=== PATIENT | male | born 1970 | race Caucasian/White ===

== ENCOUNTER 2020-11-13 17:49 | Observation (INO) ==
[~2020-11-13 17:49] MED LIST: EPINEPHrine INJ 1 MG/ML AMP ONE; FAMOTIDINE 20MG/5ML IV PUSH IV ONE; RACEPINEPHRINE 2.25% NEBU SOLN 0.5 ML VIAL ONE; RAPID SEQUENCE INDUCTION BAG ONE
--- NOTE | 2020-11-13 18:06 | Emergency Department Note ---
History of Present Illness General Chief complaint: Allergic Reaction Stated complaint: ALLERGIC REACTION History of Present Illness Provider complaint: allergic reaction Onset (ago): hour(s) 1 Exposure: insect bite Symptoms: lip swelling, difficulty swallowing and hoarseness Severity: severe Treatment prior to arrival: benadryl (50 mg PO & 50 mg IVP), epinephrine (2 doses epi 0.3mg IM), oxygen, steroids (solumedrol 125) and IV fluids Home Medications Medication Instructions Recorded Confirmed Type tadalafil 10 mg tablet (Cialis) 10 mg PO DAILY PRN #20 tab 03/09/19 11/13/20 Rx losartan 50 mg tablet 50 mg PO DAILY #90 tab 01/23/20 11/13/20 Rx Allergies Allergy/AdvReac Type Severity Reaction Status Date / Time amlodipine Allergy Severe MOOD CHANGE Verified 11/13/20 18:12 cephalexin Allergy Severe HIVES Verified 11/13/20 18:12 Past Med/Surg History Medical History HTN (hypertension) Left ankle sprain Surgical History S/P carpal tunnel release S/P tonsillectomy and adenoidectomy Family History Father Myocardial infarction Aunt Colorectal cancer Family/Other Family history of ischemic heart disease before age 50 Denies family history of Ovarian cancer Prostate cancer Breast cancer Social History Smoking Status: Current every day smoker Tobacco Type: Cigarettes Hx Alcohol Use: Yes (3 to 4) Alcohol type: beer Hx Substance Use: No Preferred Language: Portuguese Communication Ability: Effective Visual Impairment: No Limitations Hearing Ability: Normal marital status: Current Living Situation: Spouse Feels Safe at Home: Yes Seatbelt Use: always Review of Systems A total of 10 systems reviewed and were otherwise negative Physical Exam Vital Signs Vital Signs - 24 hr 11/13/20 17:50 11/13/20 17:53 11/13/20 17:55 Temperature 36.5 C Temperature Source Oral Pulse Rate 94 H 82 Pulse Rate [Apical] Pulse Rate from SpO2 Sensor 84 Pulse Rhythm Regular Pulse Strength Normal Respiratory Rate 19 13 Respiratory Effort / Characteristics Non-Labored Spontaneous Respiratory Depth Normal Respiratory Pattern Regular Blood Pressure 109/74 129/80 Blood Pressure [Right Arm] Blood Pressure Mean 85 96 Blood Pressure Mean [Right Arm] Blood Pressure Position Lying Pulse Oximetry 100 100 100 Oxygen Delivery Method Nasal Cannula Nasal Cannula Nasal Cannula Oxygen Flow Rate 6 6 4 Sepsis Recent Fever Within 48 Hours No Sepsis New/Unexplained Change in Mental Status N/A Sepsis Action Taken by Nursing No Action Required Oxygen Flow Rate - Titration 4 Pulse Oximetry Post Tiitration 99 11/13/20 18:02 11/13/20 18:15 11/13/20 18:30 Temperature Temperature Source Pulse Rate 94 H 124 H 92 H Pulse Rate [Apical] Pulse Rate from SpO2 Sensor 88 91 H 89 Pulse Rhythm Pulse Strength Respiratory Rate 18 20 Respiratory Effort / Characteristics Respiratory Depth Respiratory Pattern Blood Pressure 142/82 H Blood Pressure [Right Arm] Blood Pressure Mean 102 Blood Pressure Mean [Right Arm] Blood Pressure Position Pulse Oximetry 98 100 100 Oxygen Delivery Method Nasal Cannula Nasal Cannula Nasal Cannula Oxygen Flow Rate 4 4 2 Sepsis Recent Fever Within 48 Hours Sepsis New/Unexplained Change in Mental Status Sepsis Action Taken by Nursing Oxygen Flow Rate - Titration Pulse Oximetry Post Tiitration 11/13/20 19:27 Temperature Temperature Source Pulse Rate Pulse Rate [Apical] 80 Pulse Rate from SpO2 Sensor Pulse Rhythm Pulse Strength Respiratory Rate 20 Respiratory Effort / Characteristics Respiratory Depth Respiratory Pattern Blood Pressure Blood Pressure [Right Arm] 142/79 H Blood Pressure Mean Blood Pressure Mean [Right Arm] 100 Blood Pressure Position Pulse Oximetry 99 Oxygen Delivery Method Room Air Oxygen Flow Rate Sepsis Recent Fever Within 48 Hours Sepsis New/Unexplained Change in Mental Status Sepsis Action Taken by Nursing Oxygen Flow Rate - Titration Pulse Oximetry Post Tiitration Physical Exam GENERAL: Diaphoretic tremulous. Patient able to speak in full sentences. patient on 6L O2 via NC HENT: Exam performed. - Head: Normocephalic and atraumatic. - Right Ear: External ear normal. No mastoid tenderness. - Left Ear: External ear normal. No mastoid tenderness. - Mouth/Throat: The oropharynx is clear and moist. No trismus in the jaw. No tongue or uvular swelling. No lip swelling. EYES: Conjunctivae and EOM are normal. Pupils are equal, round, and reactive to light. Right eye exhibits no discharge. Left eye exhibits no discharge. No scleral icterus. NECK: Normal range of motion. Neck supple. No JVD present. CV: tachycardic rate, regular rhythm, normal heart sounds and intact distal pulses. There is no peripheral edema. Palpable radial pulses bue. PULM/CHEST: Bilateral expiratory wheezes. - Chest Wall: He exhibits no tenderness. ABD: The abdomen is soft. MUSC/SKEL: Normal range of motion. There is no peripheral edema, tenderness or deformity. NEURO: He is alert and oriented to person, place, and time. He has normal strength. No cranial nerve deficit or sensory deficit. Course Course 1749: The patient was evaluated in room A1. A complete history and physical exam was performed Cardiac monitoring: An order was placed for continuous cardiac monitoring. The monitor shows a rate of 100 with sinus rhythm 50-year-old male presented emergency department via EMS for allergic reaction. Patient states he was feeling fine today and he was outside and then he got stung by approximately 20 bees in his leg. He states he immediately started feeling short of breath, like he could not swallow, like his lips are swelling, and became sweaty. He states he took Benadryl 50 mg via mouth but it did not help. EMS was called. Patient was 86% on room air per EMS. They stated he was diaphoretic had some lip swelling and was having difficulty breathing. EMS gave the patient epi 0.3 mg IM start IV fluids and give the patient Solu-Medrol 125 mg. Benadryl 50 mg IV push was given by EMS. EMS stated that the patient became more hypotensive and so they gave him another epinephrine 0.3 mg. They stated when they pulled into the driveway the patient's blood pressure started becoming better and his lip swelling started becoming better. Patient states he only feels mild lip swelling now and states he can swallow much better. Fusun-hw-antl ABG done here shows pH of 7.28 PCO2 38.3 PaO2 124 and bicarb 18.1. Oxygen saturation 90%. Patient does state he smokes every day and that is why he is wheezing. He states he feels much better each breathing right now. We will continue to monitor the patient at this time and check labs and EKG. 184: Vital signs stable on supplemental oxygen via nasal cannula. Patient continues to be able to talk in full sentences and maintain his airway. Patient states he feels much better. Given the patient's need for 2 dose of epinephrine we will observe the patient overnight for anaphylaxis. Discussed case with Dr. Lion salzaar [facility] hospitalist who agrees to evaluate the patient. Administered Medications Discontinued Medications Epinephrine (Racepinephrine 2.25% Nebu Soln 0.5 Ml Vial) Confirm Administered Dose 0.5 ml .ROUTE .STK-MED ONE Stop: 11/13/20 17:47 Last Admin: 11/13/20 18:38 Dose: Not Given Documented by: [id number] Epinephrine HCl (Epinephrine Inj 1 Mg/Ml Amp) Confirm Administered Dose 1 mg .ROUTE .STK-MED ONE Stop: 11/13/20 17:39 Last Admin: 11/13/20 18:37 Dose: Not Given Documented by: [id number] Famotidine (Famotidine 20mg/5ml Iv Push) Confirm Administered Dose 20 mg IV .STK-MED ONE Stop: 11/13/20 17:39 Last Admin: 11/13/20 17:51 Dose: 20 mg Documented by: [id number] Miscellaneous (Rapid Sequence Induction Bag) Confirm Administered Dose 1 ea .ROUTE .STK-MED ONE Stop: 11/13/20 17:48 Last Admin: 11/13/20 18:38 Dose: Not Given Documented by: [id number] Medical Decision Making Laboratory Data : 11/13/20 18:04 11/13/20 18:04 Lab Results 11/13/20 11/13/20 11/13/20 Range/Units 18:04 18:04 18:45 WBC 10.35 (4.8-10.8) K/uL RBC 5.09 (4.7-6.1) M/uL Hgb 16.9 (14.0-18.0) g/dL Hct 48.6 (42-52) % MCV 95.5 (80-100) fL MCH 33.2 (25-34) pg MCHC 34.8 (32-36) g/dL RDW Std Deviation 45.5 (36.4-46.3) fL RDW Coeff of Kush 13.2 (11.5-14.5) % Plt Count 253 (130-400) K/uL MPV 9.9 (7.4-10.4) fL Immature Gran % (Auto) 0.4 % Neut % (Auto) 64.7 % Lymph % (Auto) 28.6 % [place] % (Auto) 5.3 % Eos % (Auto) 0.8 % Baso % (Auto) 0.2 % Neut # (Auto) 6.70 H (1.4-6.5) K/uL Lymph # (Auto) 2.96 (1.2-3.4) K/uL [place] # (Auto) 0.55 (0.11-0.59) K/uL Eos # (Auto) 0.08 (0-0.5) K/uL Baso # (Auto) 0.02 (0-0.2) K/uL Immature Gran # (Auto) 0.04 H (0.00-0.02) K/uL Sodium 135 L (136-145) mmol/L Potassium (3.5-5.1) mmol/L Chloride 105 (98-107) mmol/L Carbon Dioxide 20 L (21-32) mmol/L Anion Gap 11.0 (3-11) BUN 12 (7-18) mg/dl Creatinine 1.30 (0.6-1.4) mg/dl Est Cr Clr Drug Dosing 90.0 ml/min Est GFR ( Amer) 73.7 ml/min Est GFR (Non-Af Amer) 63.6 ml/min BUN/Creatinine Ratio 8.9 L (10-20) Glucose 104 H (70-99) mg/dl Calcium 9.0 (8.5-10.1) mg/dl COVID-19 Eval Order Covid19 at [facility] Narrative [facility] Narrative: 1750: The patient was evaluated in room A1. A complete history and physical exam was performed Cardiac monitoring: An order was placed for continuous cardiac monitoring. The monitor shows a rate of 100 with sinus rhythm 50-year-old male presented emergency department via EMS for allergic reaction. Patient states he was feeling fine today and he was outside and then he got stung by approximately 20 bees in his leg. He states he immediately started feeling short of breath, like he could not swallow, like his lips are swelling, and became sweaty. He states he took Benadryl 50 mg via mouth but it did not help. EMS was called. Patient was 86% on room air per EMS. They stated he was diaphoretic had some lip swelling and was having difficulty breathing. EMS gave the patient epi 0.3 mg IM start IV fluids and give the patient Solu-Medrol 125 mg. Benadryl 50 mg IV push was given by EMS. EMS stated that the patient became more hypotensive and so they gave him another epinephrine 0.3 mg. They stated when they pulled into the driveway the patient's blood pressure started becoming better and his lip swelling started becoming better. Patient states he only feels mild lip swelling now and states he can swallow much better. Point -of-care ABG done here shows pH of 7.28 PCO2 38.3 PaO2 124 and bicarb 18.1. Oxygen saturation 90%. Patient does state he smokes every day and that is why he is wheezing. He states he feels much better each breathing right now. We will continue to monitor the patient at this time and check labs and EKG. 1845: Vital signs stable on supplemental oxygen via nasal cannula. Patient continues to be able to talk in full sentences and maintain his airway. Patient states he feels much better. Given the patient's need for 2 dose of epinephrine we will observe the patient overnight for anaphylaxis. Discussed case with Dr. Lion salazar any hospitalist who agrees to evaluate the patient. Impression & Plan Anaphylaxis Discharge Plan Visit Data Chief Complaint: Allergic Reaction Stated Complaint: ALLERGIC REACTION ED Provider: Ulysses Meyer Discharge Problem: Anaphylaxis Patient Disposition: Admitted As Inpatient Forms Stand Alone Forms: [facility] Prescriptions Prescriptions: No Action losartan 50 mg tablet 50 mg PO DAILY Qty: 90 RF: 3 tadalafil [Cialis] 10 mg tablet 10 mg PO DAILY PRN (Reason: sexual activity) Qty: 20 RF: 3 Referrals Referrals: Harsha Patterson MD [Primary Care Provider] -
[2020-11-13 18:13] LABS: Basophils # (auto) 0.02 K/uL (0-0.2); Basophils % (auto) 0.2 %; Eosinophils # (auto) 0.08 K/uL (0-0.5); Eosinophils % (auto) 0.8 %; Hematocrit (blood only) 48.6 % (42-52); Hemoglobin 16.9 g/dL (14.0-18.0); Immature Granulocytes # (auto) 0.04 K/uL (0.00-0.02); Immature Granulocytes % (auto) 0.4 %; Lymphocytes # (auto) 2.96 K/uL (1.2-3.4); Lymphocytes % (auto) 28.6 %; Mean Corpuscular Hemoglobin 33.2 pg (25-34); Mean Corpuscular Hgb Conc 34.8 g/dL (32-36); Mean Corpuscular Volume 95.5 fL (80-100); Mean Platelet Volume 9.9 fL (7.4-10.4); Monocytes # (auto) 0.55 K/uL (0.11-0.59); Monocytes % (auto) 5.3 %; Neutrophils % (auto) 64.7 %; Platelet Count 253 K/uL (130-400); RDW Coefficient of Variation 13.2 % (11.5-14.5); RDW Standard Deviation 45.5 fL (36.4-46.3); Red Blood Count 5.09 M/uL (4.7-6.1); White Blood Count 10.35 K/uL (4.8-10.8)
[2020-11-13 18:37] LABS: BUN Creatinine Ratio 8.9 (10-20); Est GFR (African American) 73.7 ml/min; Est GFR (Non-African American) 63.6 ml/min
--- NOTE | 2020-11-13 19:10 | XRay Report ---
XR chest 1V portable CLINICAL HISTORY: dyspnea COMPARISON STUDY: No previous studies for comparison. FINDINGS: No pneumothorax. No pleural effusion. No large infiltrates or consolidative lesions are seen. Minimal reticular prominence is seen within b ilateral basis. Cardiomediastinal silhouette is within normal limits in size. No significant pulmonary vascular congestion.. Aorta is tortuous. Osseous structures: unremarkable IMPRESSION: 1. No large infiltrates or consolidative lesions. ACT 112: Negative or not required by law. The above report was generated using voice recognition software. It may contain grammatical, syntax o r spelling errors. Electronically signed by: Candice Young DO 11/13/2020 7:09 PM
[2020-11-13] MEDS ORDERED: EPINEPHrine INJ 1 MG/ML AMP IM PRN (19:36)
--- NOTE | 2020-11-13 20:01 | History & Physical Report ---
Date of Service November 13, 2020 Assessment & Plan (1) Wasp sting-induced anaphylaxis: Plan: Harsha Irvin is a 50 yo male with a PMHx of hyperglycemia, HTN, tobacco abuse (3/4 ppd), and alcohol abuse (6-10 beers daily) who is admitted due to wasp sting-induced anaphylaxis. Anaphylaxis - Patient reports previous bee/wasp stings without allergic reaction - Today, patient stung > 20 times by wasps with subsequent allergic reaction/anaphylaxis requiring benadryl (50 mg PO & 50 mg IVP), epinephrine (2 doses epi 0.3mg IM), oxygen, steroids (solumedrol 125) and IV fluids en route with EMS - Now feeling much better - Will continue to monitor for recurrent symptoms including SOB, stridor, and lip swelling - Epinephrine 0.3mg IM ordered for prn dosing if symptoms of SOB, stridor, or lip swelling return. Hospitalist to be notified immediately if need for epinephrine. - Benadryl 25mg IV q8h - Prednisone 40mg po daily while admitted - Pepcid 20mg IV bid - Wean supplemental oxygen; maintain oxygen saturations > 92% - NPO but allow chips and sips Alcohol Abuse - Reports drinking 6-10 beers daily; last had 2 beers during the yard work today - Denies hx of alcohol withdrawal - Will initiate AWSS at risk protocol during admission. Please note that patient is currently slightly tremulous secondary to the epinephrine. - Do NOT suspect a component of alcohol withdrawal at this time. 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 - May provide nicotine replacement if needed during admission; not indicated at this time Hypertension - Continue home losartan FENGI: NPO -- okay for chips and sips Code status: Full code DVT ppx: Deferred at this time; recommend frequent ambulation Dispo: admit to [facility] (2) HTN (hypertension): (3) Alcohol abuse: (4) Tobacco user: History of Present Illness Primary Care Provider: Harsha Patterson MD Harsha Irvin is a 50 yo male with a PMHx of hyperglycemia, HTN, tobacco abuse (3/4 ppd), and alcohol abuse (6-10 beers daily), who presented to the [facility] ED via EMS due to anaphylaxis. Patient was at a friend's house doing yard work outside/using the weedwhacker when he stepped on a wasp's nest. Patient was stung about 20 times, primarily on his right leg. Reports previous bee/wasp stings without allergic reaction/symptoms. About 3-4 minutes after the wasp stings, patient had acute vision changes described as "vision going white" and feeling "like a spotlight was being shined into my face." He went to his vehicle to lay down/rest for several minutes. Patient felt that his symptoms were improving, however upon sitting/standing up again, his vision again "became white" and he had an acute onset of lip swelling and sweating. Patient's friend was witnessing the episode and reported that patient had labored breathing; however, patient denies any SOB or wheezing. EMS was called. Per ED documentation, prior to arrival to the ED, patient received benadryl (50 mg PO & 50 mg IVP), epinephrine (2 doses epi 0.3mg IM), oxygen, steroids (solumedrol 125) and IV fluids. Patient reports "feeling shaky" after the epinephrine but otherwise states that his symptoms have resolved. At this time, he reports "feeling much better." Patient denies CP, SOB, wheezing, throat pain/swelling, lip swelling, abd pain, nausea, vomiting, MANNING, lightheadedness, dizziness, vision changes, or leg pain. In the ED, [id number] ABG done showed pH of 7.28 PCO2 38.3 PaO2 124 and bicarb 18.1. Oxygen saturation 90% improved to 100% with NC (6L weaned to room air, currently satting at 99%). A CXR showed no acute process. Labs including CBC and BMP without significant abnormalities. Patient admitted for observation due to anaphylaxis s/p 2 rounds of epinephrine. Allergies Allergy/AdvReac Type Severity Reaction Status Date / Time amlodipine Allergy Severe MOOD CHANGE Verified 11/13/20 18:12 cephalexin Allergy Severe HIVES Verified 11/13/20 18:12 venom-wasp Allergy Severe Anaphylaxis Verified 11/13/20 20:12 Home Medications Medication Instructions Recorded Confirmed Type tadalafil 10 mg tablet (Cialis) 10 mg PO DAILY PRN #20 tab 03/09/19 11/13/20 Rx losartan 50 mg tablet 50 mg PO DAILY #90 tab 01/23/20 11/13/20 Rx Past Med/Surg History Medical History (Updated 11/13/20 @ 19:53 by Jaycee Saenz DO) Alcohol abuse HTN (hypertension) Left ankle sprain Tobacco user Wasp sting-induced anaphylaxis Surgical History S/P carpal tunnel release S/P tonsillectomy and adenoidectomy Family History Father Myocardial infarction Aunt Colorectal cancer Family/Other Family history of ischemic heart disease before age 50 Denies family history of Ovarian cancer Prostate cancer Breast cancer Social History Smoking Status: Current every day smoker Tobacco Type: Cigarettes Hx Alcohol Use: Yes (3 to 4) Alcohol type: beer Hx Substance Use: No Preferred Language: Nepalese Communication Ability: Effective Visual Impairment: No Limitations Hearing Ability: Normal marital status: Current Living Situation: Spouse Feels Safe at Home: Yes Seatbelt Use: always Review of Systems Review of Systems: See HPI Physical Exam Physical Exam: GENERAL: No acute distress. Well developed and well nourished. Vital signs reviewed as above. A/O x3. EYES: PERRLA. EOMI. Anicteric sclerae. HENT: Moist mucous membranes. No pharyngeal erythema or exudates. No tongue or uvular swelling. No lip swelling. No cervical lymphadenopathy. RESPIRATORY: Clear to auscultation bilaterally. Able to speak in full sentences without increased work of breathing. Mild inspiratory and expiratory wheezing bilateral upper lobes. No rales or rhonchi. CARDIOVASCULAR: Regular rate and rhythm. No murmurs. 2+ b/l pedal pulses. No peripheral edema. ABDOMEN: Soft, non-tender and non-distended. No palpable masses. Normal bowel sounds. EXTREMITIES: No edema. Non-tender. SKIN: Warm, dry. Multiple small erythematous raised lesions on right and left lower legs consistent with stings. NEUROLOGIC: No focal neurological deficits. CN II-XII grossly intact. Able to speak in full sentences. PSYCHIATRIC: Cooperative. Appropriate mood and affect. Results & Data Results & Data ([facility]) Vital Signs (Past 12 Hours) Vital Signs Temp Pulse Pulse Resp BP BP Pulse Ox 11/13/20 19:27 80 20 142/79 H 99 11/13/20 18:30 92 H 20 142/82 H 100 11/13/20 18:15 124 H 18 100 11/13/20 18:02 94 H 98 11/13/20 17:55 82 13 129/80 100 11/13/20 17:53 100 11/13/20 17:50 36.5 C 94 H 19 109/74 100 Laboratory Results 11/13/20 11/13/20 11/13/20 Range/Units 18:45 18:45 18:04 WBC (4.8-10.8) K/uL RBC (4.7-6.1) M/uL Hgb (14.0-18.0) g/dL Hct (42-52) % MCV (80-100) fL MCH (25-34) pg MCHC (32-36) g/dL RDW Std Deviation (36.4-46.3) fL RDW Coeff of Kush (11.5-14.5) % Plt Count (130-400) K/uL MPV (7.4-10.4) fL Immature Gran % (Auto) % Neut % (Auto) % Lymph % (Auto) % [place] % (Auto) % Eos % (Auto) % Baso % (Auto) % Neut # (Auto) (1.4-6.5) K/uL Lymph # (Auto) (1.2-3.4) K/uL [place] # (Auto) (0.11-0.59) K/uL Eos # (Auto) (0-0.5) K/uL Baso # (Auto) (0-0.2) K/uL Immature Gran # (Auto) (0.00-0.02) K/uL Sodium 135 L (136-145) mmol/L Potassium (3.5-5.1) mmol/L Chloride 105 (98-107) mmol/L Carbon Dioxide 20 L (21-32) mmol/L Anion Gap 11.0 (3-11) BUN 12 (7-18) mg/dl Creatinine 1.30 (0.6-1.4) mg/dl Est Cr Clr Drug Dosing 90.0 ml/min Est GFR ( Amer) 73.7 ml/min Est GFR (Non-Af Amer) 63.6 ml/min BUN/Creatinine Ratio 8.9 L (10-20) Glucose 104 H (70-99) mg/dl Calcium 9.0 (8.5-10.1) mg/dl COVID-19 Eval Order Covid19 at [facility] SARS-CoV-2 (PCR) Pending 11/13/20 Range/Units 18:04 WBC 10.35 (4.8-10.8) K/uL RBC 5.09 (4.7-6.1) M/uL Hgb 16.9 (14.0-18.0) g/dL Hct 48.6 (42-52) % MCV 95.5 (80-100) fL MCH 33.2 (25-34) pg MCHC 34.8 (32-36) g/dL RDW Std Deviation 45.5 (36.4-46.3) fL RDW Coeff of Kush 13.2 (11.5-14.5) % Plt Count 253 (130-400) K/uL MPV 9.9 (7.4-10.4) fL Immature Gran % (Auto) 0.4 % Neut % (Auto) 64.7 % Lymph % (Auto) 28.6 % [place] % (Auto) 5.3 % Eos % (Auto) 0.8 % Baso % (Auto) 0.2 % Neut # (Auto) 6.70 H (1.4-6.5) K/uL Lymph # (Auto) 2.96 (1.2-3.4) K/uL [place] # (Auto) 0.55 (0.11-0.59) K/uL Eos # (Auto) 0.08 (0-0.5) K/uL Baso # (Auto) 0.02 (0-0.2) K/uL Immature Gran # (Auto) 0.04 H (0.00-0.02) K/uL Sodium (136-145) mmol/L Potassium (3.5-5.1) mmol/L Chloride (98-107) mmol/L Carbon Dioxide (21-32) mmol/L Anion Gap (3-11) BUN (7-18) mg/dl Creatinine (0.6-1.4) mg/dl Est Cr Clr Drug Dosing ml/min Est GFR ( Amer) ml/min Est GFR (Non-Af Amer) ml/min BUN/Creatinine Ratio (10-20) Glucose (70-99) mg/dl Calcium (8.5-10.1) mg/dl COVID-19 Eval Order SARS-CoV-2 (PCR) Diagnostic Findings XR chest 1V portable CLINICAL HISTORY: dyspnea COMPARISON STUDY: No previous studies for comparison. FINDINGS: No pneumothorax. No pleural effusion. No large infiltrates or consolidative lesions are seen. Minimal reticular promin ence is seen within bilateral basis. Cardiomediastinal silhouette is within normal limits in size. No significant pulmonary vascular congestion.. Aorta is tortuous. Osseous structures: unremarkable IMPRESSION: 1. No large infiltrates or consolidative lesions. Supervising Physician Co-Signing Physician Notes Patient seen and examined, chart reviewed, case discussed with Dr. Saenz and I agree with her assessment and plan as above. In brief, patient is a 50yo male presenting after multiple wasp stings - resulting in SOB, lip swelling, difficulty swallowing and hoarseness. Patient given Benadryl and Epi x 2 doses (o.3 SC) en route to [facility] as well as Solumedrol and IVF Presently feels well. No SOB, stridor or lip swelling/tingling. No additional complaints at this time On exam he is afebrile, HD stable, NAD Skin -no rash HEENT- NC/AT, PERRL, EOMI, Neck supple Heart - +S21/S2, regular, no m/r/g Lungs - CTA Abd -+BS, soft, NT/ND Ext - No edema Labs and images reviewed Assessment/Plan - 50yo male presenting with anaphylactic reaction following multiple wasp stings at home. Received epi x 2 doses, steroids, IVF and benadryl with improvement. Symptoms resolved. -Observation -Epi as needed for SOB, wheeze, stridor or lip/throat swelling -Continue steroids - Prednisone 40mg daily -Continue Benadryl 25mg IV q 8 -Continue Pepcid 20mg IV BID -Most likely DC home tomorrow - patient should be supplied with an epi pen on discharge Resident Activity Tracking Resident Involvement: Resident Care Provided Care Provided: Adult Hospital Medicine
--- NOTE | 2020-11-13 20:55 | Billing Data ---
Date of Service November 13, 2020 Coding Level of Care Code 47851 Initial Inpt Care Lvl 2
[2020-11-13] MEDS ORDERED: LORazepam 1 MG/2 ML VIAL IV PRN (21:34)
[2020-11-13] MEDS ORDERED: ONDANSETRON INJ 2 MG/ML 2 ML VIAL IV PRN (21:34)
[2020-11-13] MEDS ORDERED: MAGNESIUM HYDROXIDE SUSP 30 ML UDC PO PRN (21:34)
[2020-11-13] MEDS ORDERED: POLYETHYLENE (MIRALAX) 17 GM PACK PO PRN (21:34)
[2020-11-13] MEDS ORDERED: ACETAMINOPHEN 325 MG TAB PO PRN (21:34)
[2020-11-13] MEDS ORDERED: ALUMINUM/MAGNESIUM SUSP 30 ML UDC PO PRN (21:34)
[2020-11-13] MEDS: FAMOTIDINE 20 MG in SYRINGE 3 ML IV SCH (22:39)
[2020-11-13] MEDS: diphenhydrAMINE 50 MG/ML VIAL IV SCH (22:39)
[2020-11-14] MEDS: diphenhydrAMINE 50 MG/ML VIAL IV SCH (05:40)
[2020-11-14 07:38] LABS: Hematocrit (blood only) 45.3 % (42-52); Immature Granulocytes # (auto) 0.02 K/uL (0.00-0.02); Immature Granulocytes % (auto) 0.2 %; Lymphocytes # (auto) 0.65 K/uL (1.2-3.4); Lymphocytes % (auto) 7.2 %; Mean Corpuscular Hemoglobin 33.2 pg (25-34); Mean Corpuscular Hgb Conc 35.3 g/dL (32-36); Mean Platelet Volume 9.4 fL (7.4-10.4); Monocytes # (auto) 0.46 K/uL (0.11-0.59); Monocytes % (auto) 5.1 %; Neutrophils # (auto) 7.89 K/uL (1.4-6.5); Neutrophils % (auto) 87.5 %; Platelet Count 227 K/uL (130-400); RDW Standard Deviation 45.2 fL (36.4-46.3); Red Blood Count 4.82 M/uL (4.7-6.1); White Blood Count 9.02 K/uL (4.8-10.8)
[2020-11-14 08:19] LABS: Calcium 8.6 mg/dl (8.5-10.1); Creatinine Clr Calc Pharmacy 133.6 ml/min; Est GFR (African American) 116.6 ml/min; Est GFR (Non-African American) 100.6 ml/min; Potassium 4.5 mmol/L (3.5-5.1)
--- NOTE | 2020-11-14 08:21 | Electrocardiogram Report ---
Test Reason : Blood Pressure : / mmHG Vent. Rate : 084 BPM Atrial Rate : 079 BPM P-R Int : 000 ms QRS Dur : 094 ms QT Int : 416 ms P-R-T Axes : 000 034 037 degrees QTc Int : 491 ms Poor data quality, interpretation may be adversely affected Probable Sinus rhythm Normal ECG No previous ECGs available Confirmed by Mg Wesley ([id number]) on 11/14/2020 8:20:37 AM Referred By: REFERRED SELF Confirmed By:Mg Wesley
[2020-11-14] MEDS: FAMOTIDINE 20 MG in SYRINGE 3 ML IV SCH (08:38)
[2020-11-14] MEDS ORDERED: predniSONE 20 MG TAB PO SCH (09:00)
[2020-11-14] MEDS ORDERED: LOSARTAN POTASSIUM 50 MG TAB PO SCH (09:00)
--- NOTE | 2020-11-14 09:56 | Discharge Summary ---
Date of Service November 14, 2020 Admission HPI Per Admitting Provider Harsha Irvin is a 50 yo male with a PMHx of hyperglycemia, HTN, tobacco abuse (3/4 ppd), and alcohol abuse (6-10 beers daily), who presented to the [facility] ED via EMS due to anaphylaxis. Patient was at a friend's house doing yard work outside/using the weedwhacker when he stepped on a wasp's nest. Patient was stung about 20 times, primarily on his right leg. Reports previous bee/wasp stings without allergic reaction/symptoms. About 3-4 minutes after the wasp stings, patient had acute vision changes described as "vision going white" and feeling "like a spotlight was being shined into my face." He went to his vehicle to lay down/rest for several minutes. Patient felt that his symptoms were improving, however upon sitting/standing up again, his vision again "became white" and he had an acute onset of lip swelling and sweating. Patient's friend was witnessing the episode and reported that patient had labored breathing; however, patient denies any SOB or wheezing. EMS was called. Per ED documentation, prior to arrival to the ED, patient received benadryl (50 mg PO & 50 mg IVP), epinephrine (2 doses epi 0.3mg IM), oxygen, steroids (solumedrol 125) and IV fluids. Patient reports "feeling shaky" after the epinephrine but otherwise states that his symptoms have resolved. At this time, he reports "feeling much better." Patient denies CP, SOB, wheezing, throat pain/swelling, lip swelling, abd pain, nausea, vomiting, MANNING, lightheadedness, dizziness, vision changes, or leg pain. In the ED, [id number] ABG done showed pH of 7.28 PCO2 38.3 PaO2 124 and bicarb 18.1. Oxygen saturation 90% improved to 100% with NC (6L weaned to room air, currently satting at 99%). A CXR showed no acute process. Labs including CBC and BMP without significant abnormalities. Patient admitted for observation due to anaphylaxis s/p 2 rounds of epinephrine. Admission Exam Per Admitting Provider GENERAL: No acute distress. Well developed and well nourished. Vital signs reviewed as above. A/O x3. EYES: PERRLA. EOMI. Anicteric sclerae. HENT: Moist mucous membranes. No pharyngeal erythema or exudates. No tongue or uvular swelling. No lip swelling. No cervical lymphadenopathy. RESPIRATORY: Clear to auscultation bilaterally. Able to speak in full sentences without increased work of breathing. Mild inspiratory and expiratory wheezing bilateral upper lobes. No rales or rhonchi. CARDIOVASCULAR: Regular rate and rhythm. No murmurs. 2+ b/l pedal pulses. No peripheral edema. ABDOMEN: Soft, non-tender and non-distended. No palpable masses. Normal bowel sounds. EXTREMITIES: No edema. Non-tender. SKIN: Warm, dry. Multiple small erythematous raised lesions on right and left lower legs consistent with stings. NEUROLOGIC: No focal neurological deficits. CN II-XII grossly intact. Able to speak in full sentences. PSYCHIATRIC: Cooperative. Appropriate mood and affect. Principal Diagnosis Anaphylaxis Discharge Exam General: A&Ox3. NAD. Cooperative. HEENT: Atraumatic, normocephalic. Pulm: CTAB A&P. -wheezes, -rales, -rhonchi. Symmetrical chest rise. No increase work of breathing. No respiratory distress. Cardiac: RRR, -mrg. Radial pulses intact and symmetrical. No LE edema. Abdominal: soft, non-tender, non-distended, BS x 4 Skin: warm, dry, several faint, small sting maxwell on posterior calves without surrounding erythema, no tenderness to palpation Discharge Data Allergies Allergy/AdvReac Type Severity Reaction Status Date / Time amlodipine Allergy Severe MOOD CHANGE Verified 11/13/20 18:12 cephalexin Allergy Severe HIVES Verified 11/13/20 18:12 venom-wasp Allergy Severe Anaphylaxis Verified 11/13/20 20:12 Consultations 11/13/20 18:44 ED Decision to Admit Stat Hospital Course (1) Wasp sting-induced anaphylaxis: Harsha Irvin is a 50 yo male with a PMHx of hyperglycemia, HTN, tobacco abuse (3/4 ppd), and alcohol abuse (6-10 beers daily) who was admitted to [facility] from 11/13 - 11/14 for wasp sting-induced anaphylaxis. Anaphylaxis Patient reports previous bee/wasp stings without allergic reaction; on 11/13 he was stung > 20 times by wasps with subsequent lip swelling, diaphoresis, and shortness of breath --> anaphylaxis - required benadryl (50 mg PO & 50 mg IVP), epinephrine (2 doses epi 0.3mg IM), oxygen, steroids (solumedrol 125) and IV fluids en route with EMS - also received supplemental O2 via NC but was weaned to RA after several hours - other symptoms completely resolved overnight - discharged with EpiPen rx sent to pharmacy - PCP f/u within 1 week; recommend discussion about Allergy/Immunology consult to discuss anaphylaxis and consideration for immunotherapy Alcohol use disorder - Without signs/symptoms of withdrawal in the hospital - Recommend f/u with PCP as stated above to address this Tobacco User - Counseled on tobacco cessation Hypertension - Continue home losartan (2) HTN (hypertension): (3) Alcohol abuse: (4) Tobacco user: Total Time Total Time Spent Total Time Spent (In Minutes): 20 minutes Discharge Plan Discharge Items Patient Disposition: Home - Self-Care Reason For Visit: ANAPHYLAXIS Discharge Diagnosis: Anaphylaxis Activity: Per Instructions section Non-emergency contact: Primary Care Provider Call non-emergency contact if: you have any medication questions and your symptoms worsen Follow-up/Referrals: Harsha Patterson MD [Primary Care Provider] - 11/19/20 2:15 pm (Pt is scheduled for the f/u appt on 11/19/20 at 2:15PM with Carmen Samuel PA-C for Dr. Patterson) Diet: Regular Addtl Attending Provider Instructions: Your were admitted to [facility] from 11/13 - 11/14 for lip swelling, trouble breathing and diaphoresis due to anaphylaxis (severe allergic reaction) after wasp stings. You were treated with several doses of Epinephrine as well as Benadryl and steroids, which resolved all of your symptoms. You were completely back to baseline without any symptoms as of 11/14 and tolerated breakfast well. You will be discharged on 11/14 in good, stable condition. Please sheepskin pickler a prescription for an EpiPen at your pharmacy - if you get stung by bees/wasps and begin to have some of the symptoms you had again, please administer this medication. We also recommend that you speak with your PCP about seeing an Wire Stitcher Operator to speak more about this hospitalization. Please follow up with your PCP within 1 week. You can continue to take your other home medications as scheduled. We hope you continue to feel well. Pending Studies at Discharge: No Stand-Alone Forms: My [facility] Medications and DC Order Prescriptions: New epinephrine [EpiPen 2-Kyrie] 0.3 mg/0.3 mL auto-injector 0.3 mg IM Q4H PRN (Reason: anaphylaxis) Qty: 1 RF: 1 Continued losartan 50 mg tablet 50 mg PO DAILY Qty: 90 RF: 3 tadalafil [Cialis] 10 mg tablet 10 mg PO DAILY PRN (Reason: sexual activity) Qty: 20 RF: 3 Discharge Orders: Discharge Order (Routine); Ordered 11/14/20 Ordered By: Colt Stuart/Other Patient Handouts: Anaphylactic Shock Dc, ED Anaphylaxis, ED Using an Injection Pen Admission Data Admit Date/Time: 11/13/20 19:36 Attending Provider: Josi Ballard Admit Provider: Jaycee Saenz Primary Care Provider: Harsha Patterson Other Providers: Mehnaz Seymour Other Interventions: Discharge Summary Assessment (RN) Last Done: 11/14/20 10:06 Supervising Physician Co-Signing Physician Notes Resident Physician Supervision Note: I independently interviewed and examined the patient and verified the herrera history and physical, reviewed labs and image studies and agree with resident Dr. Jeronimo findings and care plan. Resident Activity Tracking Resident Involvement: Resident Care Provided Care Provided: Adult Hospital Medicine
[2020-11-14 12:39] LABS: iSTAT Arterial Blood Gas pH 7.28 (7.35-7.45)
[2020-11-14 12:40] LABS: iSTAT Arterial Blood Gas HCO3 18 meg/L (19-24); iSTAT Arterial Blood Gas pCO2 38 mmHg (35-46); iSTAT Arterial Blood Gas pO2 124 mmHg (80-95); iSTAT Carbon Dioxide 19 mmol/L (24-31); iSTAT Sample Type Arterial
== END 2020-11-14 11:37 | disposition home or self-care (01) ==
LOC: ED 17:49 → 3N 17:49 → SUATTDRO 19:36 → 3N 21:15

== ENCOUNTER 2023-06-28 12:33 | Observation (INO) ==
--- NOTE | 2023-06-28 13:26 | Emergency Department Note ---
History of Present Illness General Chief complaint: Flu Like Symptoms Stated complaint: COUGH/FEVER/CHILLS/VOMITING/DIARRHEA Time Seen by Provider: 06/28/23 13:25 History of Present Illness Maximum Pain Intensity: 2 This is a 52-year-old male who presents to the emergency department via private vehicle with complaints of "cough, fever, chills, vomiting, diarrhea". Patient states this past Wednesday morning around 10:15 AM he began with fever, shaking, chills and could not get warm. Temperature 103.8. He notes that he felt unwell. Since then he has had vomiting, diarrhea, chills and fever. Vomiting has subsided. Now he notes diarrhea, fevers and chills. Wednesday when he was vomiting he felt a pop in his left knee and now has redness to the left leg that is also painful. Patient also notes that he normally consumes about 9 beers per day. He stopped drinking 7 PM Wednesday. He did this because he felt unwell. Then, the following morning around 10:15 AM was when he began with all the other symptoms. Home Medications Medication Instructions Recorded Confirmed Type epinephrine 0.3 mg/0.3 mL 0.3 mg (0.3 mL) IM Q4H PRN 09/01/22 06/28/23 Rx injection, auto-injector (EpiPen anaphylaxis #1 ea 2-Kyrie) tadalafil 10 mg tablet (Cialis) 10 mg PO DAILY PRN sexual activity 03/16/23 06/28/23 Rx #20 tabs losartan 50 mg tablet 50 mg PO QAM 06/28/23 06/28/23 History Allergies Allergy/AdvReac Type Severity Reaction Status Date / Time amlodipine Allergy Severe MOOD CHANGE Verified 06/28/23 15:20 cephalexin Allergy Severe HIVES Verified 06/28/23 15:20 venom-wasp Allergy Severe Anaphylaxis Verified 06/28/23 15:20 Past Med/Surg History Medical History Normal colonoscopy Encounter for screening for malignant neoplasm of rectum Encounter for screening for malignant neoplasm of colon Tobacco user Alcohol abuse Wasp sting-induced anaphylaxis HTN (hypertension) Left ankle sprain Surgical History S/P tonsillectomy and adenoidectomy S/P carpal tunnel release Family History Father Myocardial infarction Aunt Colorectal cancer Family/Other Family history of ischemic heart disease before age 50 Denies family history of Ovarian cancer Prostate cancer Breast cancer Social History (Updated 06/28/23 @ 17:27 by Zakia Santos MD) Smoking Status: Current every day smoker Tobacco Type: Cigarettes Second Hand Exposure: No; Do You Dip or Chew Tobacco: No; Hx Alcohol Use: Yes Alcohol type: beer Hx Substance Use: No Preferred Language: Yemeni Communication Ability: Effective Visual Impairment: No Limitations Hearing Ability: Normal Senior Property Manager Required: No Beliefs That Will Affect Care: None marital status: Current Living Situation: Alone Feels Safe at Home: Yes Seatbelt Use: always Assistive Devices: None Review of Systems A total of 10 systems reviewed and were otherwise negative Physical Exam Vital Signs Vital Signs - 24 hr 06/28/23 12:42 06/28/23 13:30 06/28/23 13:30 Temperature 37.5 C Temperature Source Temporal Artery Scan Pulse Rate 107 H 90 Pulse Rate from SpO2 Sensor 88 Respiratory Rate 18 24 Respiratory Effort / Characteristics Non-Labored Respiratory Depth Normal Respiratory Pattern Regular Blood Pressure 127/83 120/83 Blood Pressure Mean 97 97 Pulse Oximetry 96 95 Oxygen Delivery Method Room Air Room Air Sepsis Recent Fever Within 48 Hours No Sepsis New/Unexplained Change in Mental Status N/A Sepsis Action Taken by Nursing No Action Required 06/28/23 13:33 06/28/23 14:00 06/28/23 14:00 Temperature Temperature Source Pulse Rate 91 H 85 Pulse Rate from SpO2 Sensor 84 Respiratory Rate 24 Respiratory Effort / Characteristics Respiratory Depth Respiratory Pattern Blood Pressure 128/80 Blood Pressure Mean 96 Pulse Oximetry 96 Oxygen Delivery Method Room Air Sepsis Recent Fever Within 48 Hours Sepsis New/Unexplained Change in Mental Status Sepsis Action Taken by Nursing 06/28/23 15:32 06/28/23 16:00 06/28/23 16:30 Temperature Temperature Source Pulse Rate 79 Pulse Rate from SpO2 Sensor 79 Respiratory Rate 23 21 Respiratory Effort / Characteristics Respiratory Depth Respiratory Pattern Blood Pressure 131/75 135/74 133/80 Blood Pressure Mean 93 94 97 Pulse Oximetry 97 96 Oxygen Delivery Method Sepsis Recent Fever Within 48 Hours Sepsis New/Unexplained Change in Mental Status Sepsis Action Taken by Nursing 06/28/23 17:00 Temperature Temperature Source Pulse Rate Pulse Rate from SpO2 Sensor 80 Respiratory Rate 26 H Respiratory Effort / Characteristics Respiratory Depth Respiratory Pattern Blood Pressure 137/84 Blood Pressure Mean 101 Pulse Oximetry 96 Oxygen Delivery Method Sepsis Recent Fever Within 48 Hours Sepsis New/Unexplained Change in Mental Status Sepsis Action Taken by Nursing VITAL SIGNS - Vital signs and nursing notes were reviewed. GENERAL - 52-year-old male appearing his stated age who is in no acute distress. Communicates well with provider and answers questions appropriately. SKIN -Large area of erythema with petechial component to the left lower extremity involving mainly distal to the knee but also small patch to the left medial distal thigh. Proximal lymphangitic streaking noted in the left thigh region to the groin. HEAD - NC/AT. EYES - PERRL with EOMI bilaterally. Sclera anicteric. EARS - No deformities of external structures noted on gross examination bilaterally. NOSE - Midline and without cyanosis. No epistaxis or purulent drainage noted. MOUTH/OROPHARYNX - Without perioral cyanosis. Buccal mucosa pink and moist and without leukoplakia. Tongue midline with equal elevation of palate bilaterally. No tonsillar hypertrophy, erythema, or exudates noted. Good dentition noted. NECK - Neck with FROM. Supple to palpation. No lymphadenopathy noted. No nuchal rigidity. LUNGS - Chest wall symmetric without accessory muscle use, intercostals retractions, or central cyanosis. Normal vesicular breath sounds CTA B/L. No wheezes, rales, or rhonchi appreciated. CARDIAC - RRR with S1/S2. No murmur, rubs, or gallops appreciated. ABDOMEN - Abdominal contour normal without pulsations or visible masses. BS normoactive all four quadrants. No tenderness, palpable masses, hepatosplenomegaly, or ascites noted. EXTREMITIES - No clubbing or peripheral cyanosis. +5/5 strength noted in UE/LE bilaterally. Skin as above. Erythematous region to the left lower extremity is tender. NEUROLOGIC - Cranial nerves II through XII grossly intact. PSYCH - A&Ox3 and cooperates fully with examiner. Pt is very pleasant and interacts well with examiner. Course Administered Medications Lactated Ringer's (Lr) 1,000 mls @ 125 mls/hr IV .Q8H NHI Stop: 06/29/23 16:44 Last Admin: 06/28/23 18:50 Dose: 125 mls/hr Documented By: CPB Discontinued Medications Multivitamins 10 ml/ Thiamine HCl 100 mg/ Folic Acid 1 mg/Sodium Chloride 1,011.2 mls @ 500 mls/hr IV .Q2H2M ONE Stop: 06/28/23 15:45 Last Infusion: 06/28/23 16:10 Dose: Infused Documented By: Admin: 06/28/23 14:04 Dose: 500 mls/hr Documented By: SKYLA Piperacillin Sod/Tazobactam Sod (Zosyn) 4.5 gm in 100 mls @ 200 mls/hr IV NOW ONE Stop: 06/28/23 15:46 Last Infusion: 06/28/23 16:10 Dose: Infused Documented By: Admin: 06/28/23 15:44 Dose: 200 mls/hr Documented By: CPB Vancomycin HCl 2,000 mg/ (Sodium Chloride) 540 mls @ 200 mls/hr IV NOW ONE Stop: 06/28/23 17:58 Last Infusion: 06/28/23 18:39 Dose: Infused Documented By: Admin: 06/28/23 16:06 Dose: 200 mls/hr Documented By: CPB Magnesium Sulfate/Dextrose (Magnesium Sulfate / D5w) 1 gm in 100 mls @ 50 mls/hr IV ONE ONE Stop: 06/28/23 18:22 Last Infusion: 06/28/23 18:40 Dose: Infused Documented By: Admin: 06/28/23 16:39 Dose: 50 mls/hr Documented By: CPB Lactated Ringer's (Lr) 1,000 mls @ 999 mls/hr IV .Q1H1M ONE Stop: 06/28/23 17:38 Last Admin: 06/28/23 16:59 Dose: 999 mls/hr Documented By: CPB Potassium Phosphate (Pot Phosphate Monobasic W/ Sod Tab) 2 tab PO NOW STA Stop: 06/28/23 17:12 Last Admin: 06/28/23 17:24 Dose: 2 tab Documented By: SKYLA Medical Decision Making Laboratory Data 06/28/23 13:00 06/28/23 13:00 Lab Results 06/28/23 06/28/23 06/28/23 Range/Units 13:00 13:01 14:17 WBC 12.68 H (4.8-10.8) K/ul RBC 4.42 L (4.70-6.10) M/uL Hgb 14.2 (14.0-18.0) g/dl Hct 39.6 L (42.0-52.0) % MCV 89.6 (80.0-100.0) fL MCH 32.1 (25.0-34.0) pg MCHC 35.9 (32.0-36.0) g/dL RDW Std Deviation 41.1 (36.4-46.3) fL RDW Coeff of Kush 12.4 (11.5-14.5) % Plt Count 146 (130-400) K/uL MPV 9.6 (9.4-12.4) fL Immature Gran % (Auto) 2.6 % Neut % (Auto) 91.6 % Lymph % (Auto) 3.9 % Kershaw % (Auto) 1.7 % Eos % (Auto) 0.0 % Baso % (Auto) 0.2 % Neut # (Auto) 11.61 H (1.40-6.50) K/uL Lymph # (Auto) 0.50 L (1.20-3.40) K/uL Kershaw # (Auto) 0.21 (0.11-0.59) K/uL Eos # (Auto) 0.00 (0.00-0.50) K/uL Baso # (Auto) 0.03 (0.00-0.20) K/uL Immature Gran # (Auto) 0.33 H (0.01-0.20) K/uL Toxic Vacuolation 1+ Dohle Bodies 2+ PT 9.8 (9.0-12.0) Seconds INR 0.9 (0.9-1.1) APTT 32 H (21-31) Seconds PTT Ratio 1.1 Sodium 129 L (136-145) mmol/L Potassium 3.5 (3.5-5.1) mmol/L Chloride 100 (98-107) mmol/L Carbon Dioxide 20 L (21-32) mmol/L Anion Gap 9 (3-11) BUN 17 (6-23) mg/dl Creatinine 1.17 (0.6-1.4) mg/dl Est Cr Clr Drug Dosing 93.6 ml/min Est GFR ( Amer) 82.6 ml/min Est GFR (Non-Af Amer) 71.3 ml/min BUN/Creatinine Ratio 14.5 (10-20) Glucose 143 H (70-99(Fasting)) mg/dl Lactate 1.1 (0.4-2.0) mmol/L Calcium 9.1 (8.6-10.3) mg/dl Phosphorus 1.5 L* (2.5-4.9) mg/dl Magnesium 1.8 (1.7-2.4) mg/dl Total Bilirubin 0.8 (0.2-1.0) mg/dl AST 37 (13-39) U/L ALT 42 (7-52) U/L Alkaline Phosphatase 55 (34-104) U/L C-Reactive Protein 25.68 H (0-0.5) mg/dl Total Protein 7.2 (6.0-8.3) gm/dl Albumin 3.9 (3.4-5.0) gm/dl Globulin 3.3 (2.5-4.0) gm/dl Albumin/Globulin Ratio 1.2 (0.9-2) Procalcitonin 4.84 H (0-0.5) ng/ml Anaplasma Smear See Comment Babesia Smear See Comment Lyme Disease Screen Negative (Negative) SARS-CoV-2 (PCR) NEGATIVE (Negative) Influenza Type A (PCR) Negative (Neg) Influenza Type B (PCR) Negative (Neg) RSV (RT-PCR) Negative (Neg) Group A Strep (PCR) (NotDetected) 06/28/23 Range/Units 16:14 WBC (4.8-10.8) K/ul RBC (4.70-6.10) M/uL Hgb (14.0-18.0) g/dl Hct (42.0-52.0) % MCV (80.0-100.0) fL MCH (25.0-34.0) pg MCHC (32.0-36.0) g/dL RDW Std Deviation (36.4-46.3) fL RDW Coeff of Kush (11.5-14.5) % Plt Count (130-400) K/uL MPV (9.4-12.4) fL Immature Gran % (Auto) % Neut % (Auto) % Lymph % (Auto) % Kershaw % (Auto) % Eos % (Auto) % Baso % (Auto) % Neut # (Auto) (1.40-6.50) K/uL Lymph # (Auto) (1.20-3.40) K/uL Kershaw # (Auto) (0.11-0.59) K/uL Eos # (Auto) (0.00-0.50) K/uL Baso # (Auto) (0.00-0.20) K/uL Immature Gran # (Auto) (0.01-0.20) K/uL Toxic Vacuolation Dohle Bodies PT (9.0-12.0) Seconds INR (0.9-1.1) APTT (21-31) Seconds PTT Ratio Sodium (136-145) mmol/L Potassium (3.5-5.1) mmol/L Chloride (98-107) mmol/L Carbon Dioxide (21-32) mmol/L Anion Gap (3-11) BUN (6-23) mg/dl Creatinine (0.6-1.4) mg/dl Est Cr Clr Drug Dosing ml/min Est GFR ( Amer) ml/min Est GFR (Non-Af Amer) ml/min BUN/Creatinine Ratio (10-20) Glucose (70-99(Fasting)) mg/dl Lactate (0.4-2.0) mmol/L Calcium (8.6-10.3) mg/dl Phosphorus (2.5-4.9) mg/dl Magnesium (1.7-2.4) mg/dl Total Bilirubin (0.2-1.0) mg/dl AST (13-39) U/L ALT (7-52) U/L Alkaline Phosphatase (34-104) U/L C-Reactive Protein (0-0.5) mg/dl Total Protein (6.0-8.3) gm/dl Albumin (3.4-5.0) gm/dl Globulin (2.5-4.0) gm/dl Albumin/Globulin Ratio (0.9-2) Procalcitonin (0-0.5) ng/ml Anaplasma Smear Babesia Smear Lyme Disease Screen (Negative) SARS-CoV-2 (PCR) (Negative) Influenza Type A (PCR) (Neg) Influenza Type B (PCR) (Neg) RSV (RT-PCR) (Neg) Group A Strep (PCR) NOT DETECTED (NotDetected) Imaging Data Radiologist's Impression: Chest X-Ray 06/28/23 12:48 XR chest 1V portable HISTORY: flu like symptoms COMPARISON: Chest 11/13/2020. FINDINGS: The lungs are clear. Cardiac silhouette is normal in size. No pleural effusions. No pneumothorax. IMPRESSION: No acute process. ACT 112: Negative or not required by law. Electronically signed by: David Smith M.D. 06/28/2023 1:57 PM Venous Doppler Study 06/28/23 13:36 LEFT LOWER EXTREMITY VENOUS DOPPLER CLINICAL HISTORY: L leg pain, erythema, edema COMPARISON STUDY: Left lower extremity venous Doppler ultrasound October 13, 2012. TECHNIQUE: Sonography of the deep venous system of the left lower extremity was performed. Compression and augmentation were evaluated. FINDINGS: The left common femoral, superficial femoral and popliteal veins were compressible. Augmentation was normal. Flow was shown within the deep calf vessels. Incidental note was made of several benign-appearing left inguinal lymph nodes. IMPRESSION: No evidence of deep venous thrombus within the left lower extremity. ACT 112: Negative or not required by law. Electronically signed by: Ilir Doan M.D. 06/28/2023 3:44 PM Tibia/Fibula X-Ray 06/28/23 16:44 XR tibia fibula LT 2V CLINICAL HISTORY: Erythematous LLE COMPARISON: Left tibia and fibula radiographs April 02, 2014. FINDINGS: No acute fracture within the left tibia or fibula is noted. There are old posttraumatic/postoperative confines within the distal left tibia or fibula. No areas of bony erosion are identified. No soft tissue gas is identified by radiography. IMPRESSION: No acute osseous abnormality within the left tibia or fibula. ACT 112: Negative or not required by law. Electronically signed by: Ilir Doan M.D. 06/28/2023 5:[address] 06/28/23 16:53 CT femur LT wo con CLINICAL HISTORY: Left medial thigh cellulitis; potential abscess COMPARISON STUDY: Left lower extremity venous Doppler ultrasound performed earlier today. TECHNIQUE: Axial images of the left thigh and femur were obtained without IV contrast. Sagittal and coronal reconstructions were viewed. Automated exposure control was utilized for the study. A dose lowering technique was utilized adhering to the principles of ALARA. FINDINGS: Note is made of skin thickening and moderate subcutaneous stranding of the anterior medial left thigh. Stranding extends into the left pelvic sidewall. There is no soft tissue gas. No fluid collection is identified on this unenhanced examination. No areas of bony erosion are identified. Mildly enlarged left external iliac lymph node on image 51 of 513 measures 2.3 x 1.9 cm. A mildly enlarged left inguinal lymph node on image 127 measures 1.8 x 1.6 cm. No additional abnormalities are identified within visualized portions of the pelvis. There is also mild stranding within the left popliteal fossa. IMPRESSION: 1. Skin thickening with moderate subcutaneous stranding of the anterior medial left thigh extending into the left pelvic sidewall. This favors cellulitis. No fluid collection identified. No evidence for acute osteomyelitis. 2. Additional sites of subcutaneous stranding within the left lower extremity, including a left popliteal fossa. This stranding is nonspecific and could reflect edema or additional sites of cellulitis. No fluid collection identified. 3. Mildly enlarged left external iliac and inguinal lymph nodes which are likely reactive. A pelvis CT in 3 months to ensure resolution is recommended. ACT 112: Negative or not required by law. Electronically signed by: Ilir Doan M.D. 06/28/2023 5:41 PM MDM Narrative Patient was seen and evaluated as above in room A10. Review was performed of nursing notes and vital signs. After obtaining a thorough history and physical examination the above work up was performed. Vital signs overall stable. He is not hypotensive. Upon my initial assessment of the patient he had already received about 500 mL of normal saline. Patient sodium returned and was low at 129. I did inquire about alcohol use and the patient notes he drinks about 9 beers per day but has not had a drink since this past Wednesday evening around 7 PM. He then began with rest of the symptoms he presents with today the following morning. I did stop the normal saline bag at just over 500 mL and did order a banana bag to include the multivitamins as well as thiamine and folic acid. I will note that the hyponatremia appears to be acute as the patient did have blood work at the end of April of this year and sodium was normal at that time. Patient appears quite dehydrated and fits with his reported history of vomiting and diarrhea. Patient's presentation is concerning for that of infectious etiology. The left lower extremity erythema may represent cellulitis. Broad-spectrum antibiotics will be initiated. Patient notes he has tolerated penicillins before without issue. IV Zosyn and IV vancomycin ordered. It is felt that the benefit outweighs risk. Chest x-ray negative. Labs reveal leukocytosis 12.68. No significant anemia. There is toxic vacuolation and dohle bodies noted. There is hyponatremia 129. No evidence of kidney or liver failure emergently. Glucose 143. Phos 1.5. Procalcitonin 4.84. Lactate normal. Anaplasmosis and Babesia smear negative with send out test pending. Lyme screen negative. COVID, flu, RSV negative. Doppler study per my interpretation without evidence of DVT. The patient will require hospitalization for further evaluation and management of his infectious presentation. Blood cultures pending. Case discussed with the hospitalist service. Please refer to further documentation regarding his stay. GCS: 15 In the evaluation and treatment of this patient the following differential diagnoses were entertained: Bacteremia, sepsis, cellulitis, zoster, viral illness, among others Impression & Plan Cellulitis of left leg, Hypophosphatemia, Hyponatremia, Elevated procalcitonin Discharge Plan Visit Data Chief Complaint: Flu Like Symptoms Stated Complaint: COUGH/FEVER/CHILLS/VOMITING/DIARRHEA ED Provider: Larry Torres ED Midlevel Provider: Albert Brown Discharge Problem: Cellulitis of left leg, Hypophosphatemia, Hyponatremia, Elevated procalcitonin Patient Disposition: Admitted As Inpatient Condition: Good Forms Stand Alone Forms: [employer] Prescriptions Prescriptions: No Action tadalafil [Cialis] 10 mg tablet 10 mg PO DAILY PRN (Reason: sexual activity) Qty: 20 3RF Rx Instructions: take 30min before sexual activity do not use more than 1 dose per 24hrs epinephrine [EpiPen 2-Kyrie] 0.3 mg/0.3 mL auto-injector 0.3 mg IM Q4H PRN (Reason: anaphylaxis) Qty: 1 1RF losartan 50 mg tablet 50 mg PO QAM Referrals Referrals: Harsha Patterson MD [Primary Care Provider] -
[2023-06-28 13:37] LABS: Albumin Globulin Ratio 1.2 (0.9-2); Albumin Level 3.9 gm/dl (3.4-5.0); BUN Creatinine Ratio 14.5 (10-20); Bilirubin,Total 0.8 mg/dl (0.2-1.0); Calcium 9.1 mg/dl (8.6-10.3); Creatinine Clr Calc Pharmacy 93.6 ml/min; Est GFR (African American) 82.6 ml/min; Est GFR (Non-African American) 71.3 ml/min; Globulin 3.3 gm/dl (2.5-4.0); Potassium 3.5 mmol/L (3.5-5.1); Total Protein 7.2 gm/dl (6.0-8.3)
[2023-06-28 13:44] LABS: Hematocrit (blood only) 39.6 % (42.0-52.0); Hemoglobin 14.2 g/dl (14.0-18.0); Mean Corpuscular Hemoglobin 32.1 pg (25.0-34.0); Mean Corpuscular Hgb Conc 35.9 g/dL (32.0-36.0); Mean Corpuscular Volume 89.6 fL (80.0-100.0); Mean Platelet Volume 9.6 fL (9.4-12.4); Platelet Count 146 K/uL (130-400); RDW Coefficient of Variation 12.4 % (11.5-14.5); RDW Standard Deviation 41.1 fL (36.4-46.3); Red Blood Count 4.42 M/uL (4.70-6.10); White Blood Count 12.68 K/ul (4.8-10.8)
[2023-06-28 13:46] LABS: Basophils # (auto) 0.03 K/uL (0.00-0.20); Basophils % (auto) 0.2 %; Dohle Bodies 2+; Immature Granulocytes # (auto) 0.33 K/uL (0.01-0.20); Immature Granulocytes % (auto) 2.6 %; Lymphocytes % (auto) 3.9 %; Monocytes # (auto) 0.21 K/uL (0.11-0.59); Monocytes % (auto) 1.7 %; Neutrophils # (auto) 11.61 K/uL (1.40-6.50); Neutrophils % (auto) 91.6 %; Toxic Vacuolation 1+
[2023-06-28 13:50] LABS: Influenza A virus by PCR Negative (Neg); Influenza B virus by PCR Negative (Neg); RSV by PCR Negative (Neg); SARS CoV2 RNA(COVID-19) Ceph NEGATIVE (Negative)
[2023-06-28 13:55] LABS: INR 0.9 (0.9-1.1); Partial Thromboplastin Ratio 1.1; Partial Thromboplastin Time 32 Seconds (21-31); Prothrombin Time 9.8 Seconds (9.0-12.0)
--- NOTE | 2023-06-28 14:00 | XRay Report ---
XR chest 1V portable HISTORY: flu like symptoms COMPARISON: Chest 11/13/2020. FINDINGS: The lungs are clear. Cardiac silhouette is normal in size. No pleural effusions. No pneumot horax. IMPRESSION: No acute process. ACT 112: Negative or not required by law. Electronically signed by: David Smith M.D. 06/28/2023 1:57 PM
[2023-06-28] MEDS: MULTI-VITAMIN INFUSION 10 ML, THIAMINE HCL 100 MG, FOLIC ACID 1 MG in SODIUM CHLORIDE 0... IV ONE (14:04)
[2023-06-28 15:13] LABS: Magnesium 1.8 mg/dl (1.7-2.4); Phosphorus 1.5 mg/dl (2.5-4.9)
[2023-06-28] MEDS ORDERED: VANCOMYCIN CONSULT ACTIVE PRN (15:17)
--- NOTE | 2023-06-28 15:27 | History & Physical Report ---
Date of Service June 28, 2023 Assessment & Plan (1) Cellulitis: Plan: Circumferential LLE erythema that developed on Sunday 06/25 Patient reports that he felt sick Wednesday morning with N/V/D, fever, and chills, and that he felt a "pop" in his left lower leg while vomiting Wednesday night Leukocytosis elevated at 12.68; afebrile on arrival, but noted 103.8 F fever at home Blood cultures ordered, pending Procalcitonin elevated at 4.84 CRP, ESR ordered, pending COVID, flu, RSV negative Lyme negative Venous Doppler study revealed no evidence of DVT in the LLE Group A strep ordered, pending Stool cultures ordered, pending XR tibia/fibula LT ordered, pending CT of the left upper extremity ordered, pending; to rule out potential abscess Vancomycin and Zosyn started in the ED Will continue Zosyn q8h, as well as daptomycin 6mg/kg IV q24h Follow Blood Cx Acetaminophen as needed for pain/fever Zofran as needed for nausea/vomiting IVF resuscitation with LR at 125mL/hr x 4 A.m. CBC, BMP, CRP, procalcitonin, mag (2) Alcohol abuse: Plan: Patient reportedly drinks 7-8 beers per day Denies past history of alcohol withdrawal when stopping, or alcohol withdrawal seizures AWSS at risk protocol with Ativan Seizure precautions Folic acid 1 mg p.o. and thiamine 100 mg p.o. QAM (3) Hyponatremia: Plan: Na 129 on arrival Likely secondary to vomiting and GI losses IVF resuscitation (as above) Recheck a.m. labs (4) Hypophosphatemia: Plan: Phosphate low at 1.5 on arrival Potassium phosphate repletion x 4 tablets Recheck a.m. labs (5) Tobacco user: Plan: CXR revealed no acute processes Nicotine patch application/removal daily (6) HTN (hypertension): Plan: Renal function okay on arrival Will hold losartan for now in the setting of sepsis (7) Sepsis: Plan: Patient meets sepsis criteria based on mild tachycardia and WBC count in the ED; likely source is a skin/soft tissue infection in his LLE Lactate 1.1 on arrival IVF resuscitation and abx (as above) Plan Disposition: Admit to PCU telemetry DNR/DNI Regular diet VTE PPx: Lovenox 40 mg SQ q24h History of Present Illness Chief Complaint: N/V/D and LLE erythema Primary Care Provider: Harsha Patterson MD Harsha is a 52-year-old male with PMH of HTN, alcohol abuse, tobacco use, and anaphylaxis. He presented for abdominal pain, N/V/D, chills/shaking, and fever that started on Sunday 06/25. Patient also notes that he felt a "pop" in his left knee when vomiting the evening of Wednesday, and has been limping since. Patient denies any other recent injuries or trauma to the left lower extremity. No history of cellulitis, gout, or recent tick bites. He describes the pain in his left lower extremity as a "burning sensation" that is worse when it is palpated; rated 8/10 at worst. He has not been applying any lotions or points to the leg. Patient does note that he broke his left ankle in 2013. Patient notes that his symptoms started on Wednesday, and that he developed a 103.8 F fever at home for which he has been taking NyQuil and DayQuil without relief. He also notes he has been vomiting since Wednesday, however this resolved on Wednesday. Patient reports that he is sexually active, but nothing within the past month. He reports that he only takes losartan on a daily basis, and last took it this morning. Patient is a current everyday tobacco cigarette smoker; 1 PPD. He also endorses alcohol use 78 beers per day; he denies history of alcohol withdrawal when stopping in the past, or withdrawal seizures. Patient also notes he does have an allergy to Keflex, and that he usually gets itchy and has hives when he takes it; no history of anaphylaxis. Patient's vitals are stable at time of admission. ED course: Banana bag x 1 Zosyn 4.5 g IV Vancomycin 2000 mg IV ROS: Patient endorses fever, chills, dizziness with walking, headache, productive cough (yellow sputum production), abdominal cramping, diarrhea, and pain to palpation of the left lower extremity. Patient denies changes in vision/hearing/taste/smell, chest pain, pleuritic CP, SOB,, urinary symptoms, burning with urination, blood in stool/urine, or numbness/tingling going down the legs bilaterally. Allergies Allergy/AdvReac Type Severity Reaction Status Date / Time amlodipine Allergy Severe MOOD CHANGE Verified 06/28/23 15:20 cephalexin Allergy Severe HIVES Verified 06/28/23 15:20 venom-wasp Allergy Severe Anaphylaxis Verified 06/28/23 15:20 Home Medications Medication Instructions Recorded Confirmed Type epinephrine 0.3 mg/0.3 mL 0.3 mg (0.3 mL) IM Q4H PRN 09/01/22 06/28/23 Rx injection, auto-injector (EpiPen anaphylaxis #1 ea 2-Kyrie) tadalafil 10 mg tablet (Cialis) 10 mg PO DAILY PRN sexual activity 03/16/23 06/28/23 Rx #20 tabs losartan 50 mg tablet 50 mg PO QAM 06/28/23 06/28/23 History Past Med/Surg History Medical History Normal colonoscopy Encounter for screening for malignant neoplasm of rectum Encounter for screening for malignant neoplasm of colon Tobacco user Alcohol abuse Wasp sting-induced anaphylaxis HTN (hypertension) Left ankle sprain Surgical History S/P tonsillectomy and adenoidectomy S/P carpal tunnel release Family History Father Myocardial infarction Aunt Colorectal cancer Family/Other Family history of ischemic heart disease before age 50 Denies family history of Ovarian cancer Prostate cancer Breast cancer Social History (Updated 06/28/23 @ 17:27 by Zakia Santos MD) Smoking Status: Current every day smoker Tobacco Type: Cigarettes Second Hand Exposure: No; Do You Dip or Chew Tobacco: No; Hx Alcohol Use: Yes Alcohol type: beer Hx Substance Use: No Preferred Language: Taiwanese Communication Ability: Effective Visual Impairment: No Limitations Hearing Ability: Normal Senior Linux Systems Administrator Required: No Beliefs That Will Affect Care: None marital status: Current Living Situation: Alone Feels Safe at Home: Yes Seatbelt Use: always Assistive Devices: None Review of Systems 2 Review of Systems: See HPI above Physical Exam 2 Physical Exam: General: no acute distress; pleasant affect; well-nourished; cooperative HEENT: normocephalic, atraumatic; no scleral icterus; PERRLA; vision and hearing grossly intact Neck: supple; trachea midline Skin: warm, dry without signs of tenting; no cyanosis CV: chest wall NTP; RRR; S1/S2 normal; no murmurs/rubs/gallops; pulses intact and symmetric at radial, DP, and PT Lungs: no acute respiratory distress; symmetrical chest wall expansion; clear breath sounds across all lung lopez w/o adventitious sounds; no wheezing ABD: Soft, NTP; BS present; no rebound/guarding; no ascites; no distention LLE: Circumferential erythema around the left lower extremity extending from the ankle to the knee with lymphadenopathy and erythema in the medial upper thigh; no knee effusion; knee is NTP; erythema does not extend into the groin region (see photos below); lymphangitis; warm to touch; LLE tender to palpation MSK: no tics or fasciculations; patient demonstrates the ability to wiggle toes bilaterally; LLE neurovascular intact Neuro: A&Ox3; normal mood and affect; fluent speech; no focal deficits; sensation grossly intact in the LEs b/l Results & Data Results & Data Vital Signs (Past 12 Hours) Vital Signs Temp Pulse Resp BP Pulse Ox O2 Del Method 06/28/23 14:00 85 24 96 Room Air 06/28/23 14:00 128/80 06/28/23 13:33 91 H 06/28/23 13:30 120/83 06/28/23 13:30 90 24 95 Room Air 06/28/23 12:42 37.5 C 107 H 18 127/83 96 Room Air Laboratory Results Abnormal lab results 06/28/23 06/28/23 Range/Units 13:00 14:17 WBC 12.68 H (4.8-10.8) K/ul RBC 4.42 L (4.70-6.10) M/uL Hct 39.6 L (42.0-52.0) % Neut # (Auto) 11.61 H (1.40-6.50) K/uL Lymph # (Auto) 0.50 L (1.20-3.40) K/uL Immature Gran # (Auto) 0.33 H (0.01-0.20) K/uL APTT 32 H (21-31) Seconds Sodium 129 L (136-145) mmol/L Carbon Dioxide 20 L (21-32) mmol/L Glucose 143 H (70-99(Fasting)) mg/dl Phosphorus 1.5 L* (2.5-4.9) mg/dl Procalcitonin 4.84 H (0-0.5) ng/ml Diagnostic Findings Chest X-Ray 06/28/23 12:48 XR chest 1V portable HISTORY: flu like symptoms COMPARISON: Chest 11/13/2020. FINDINGS: The lungs are clear. Cardiac silhouette is normal in size. No pleural effusions. No pneumothorax. IMPRESSION: No acute process. ACT 112: Negative or not required by law. Electronically signed by: David Smith M.D. 06/28/2023 1:57 PM Code Status & VTE Plan Code Status DNR/DNI VTE Prophylaxis Plan VTE Prophylaxis will be ordered: Yes Supervising Physician Co-Signing Physician Notes ANGELICA Supervision Note: I personally saw and examined the patient. I verified all herrera points and agree with ANGELICA Carlin with the following exceptions and/or additions: S-patient presents with fevers, nausea/vomiting and diarrhea and significant leg redness and pain that started acutely on Wednesday. The redness has not worsened or spread since Wednesday but the fevers persist. The nausea and vomiting is now improved but continues with some loose stools. He feels very dehydrated. Denies chest pains or shortness of breath. He denies any open wounds or cuts or traumatic events to the leg. Denies sore throat. History and ROS otherwise reviewed as above O- Vitals reviewed Gen: AAOx3, NAD HEENT: Anicteric sclerae, EOMI, soft palate and posterior oropharynx with grayish-white exudate and mild erythema CV: RRR no mgr nl S1S2 Pulm: CTAB no wcr Abd: +BS soft NT ND no masses or hernias Ext: 2+ DP pulses Skin: Significant circumferential erythema and tenderness to palpation and hot to the touch of entire left leg starting at the ankle to the proximal tibia, and then medial left thigh with induration and no definite fluctuance, with some small forming vesicles in the medial thigh, milder erythema streaking up to left groin but not into groin. 3 small scabs on posterior medial left thigh Neuro: Full strength throughout CBC, CMP, CRP, procalcitonin reviewed A/D-33-iweh-old male here with left lower extremity cellulitis versus erysipelas, and sepsis. Continue broad-spectrum antibiotics to cover for staph and strep as above, has cephalexin allergy Follow blood cultures Follow CBC, CMP, CRP, and procalcitonin Elevate the limb Start IV fluids for hyponatremia likely from hypovolemia from sepsis and recent nausea/vomiting Stool studies if continues to have diarrhea, avoid antidiarrheal agents for now Suspect nausea/vomiting/diarrhea may be related to sepsis. With exudate on throat-awaiting strep throat swab Consult infectious disease PG Care Time/CCT Total # of Minutes Spent Total Time Spent with Patient: Total time spent is greater than 50% in coordination of care (as documented) at patient's floor/unit and/or counseling patient: [place] [address] INT INP/OBS CARE 3/75MIN Patient Type New Medical Decision Making High Complexity Diagnoses Cellulitis L03.90 Alcohol abuse F10.10 Hyponatremia E87.1 Hypophosphatemia E83.39 Tobacco user Z72.0 HTN (hypertension) I10 Sepsis A41.9
[2023-06-28] MEDS: PIPERACILLIN/TAZOBACTAM 4.5 GM/100 ML BAG IV ONE (15:44)
--- NOTE | 2023-06-28 15:46 | Ultrasound Report ---
LEFT LOWER EXTREMITY VENOUS DOPPLER CLINICAL HISTORY: L leg pain, erythema, edema COMPARISON STUDY: Left lower extremity venous Doppler ultrasound October 13, 2012. TECHNIQUE: Sonography of the deep venous system of the left lower extremity was performed. Compressi on and augmentation were evaluated. FINDINGS: The left common femoral, superficial femoral and popliteal veins were compressible. Augmen tation was normal. Flow was shown within the deep calf vessels. Incidental note was made of several b enign-appearing left inguinal lymph nodes. IMPRESSION: No evidence of deep venous thrombus within the left lower extremity. ACT 112: Negative or not required by law. Electronically signed by: Ilir Doan M.D. 06/28/2023 3:44 PM
[2023-06-28] MEDS: VANCOMYCIN HCL 2,000 MG in SODIUM CHLORIDE 0.9% 500 ML IV ONE (16:06)
[2023-06-28] MEDS: MAGNESIUM SULFATE / D5W 1 GM/100 ML BAG IV ONE (16:39)
[2023-06-28] MEDS ORDERED: LORazepam 1 MG in SYRINGE 0.5 ML IV PRN (16:40)
[2023-06-28 16:46] LABS: C Reactive Protein 25.68 mg/dl (0-0.5)
[2023-06-28] MEDS: LACTATED RINGER'S 1,000 ML IV ONE (16:59)
--- NOTE | 2023-06-28 17:13 | Emergency Department Note ---
ED Visit Note I have personally evaluated this patient examined him and reviewed the pertinent labs and data. I have discussed the case with Albert Brown, the physician assistant news director and agree with the plan. Please refer to the PA note. This patient has had nausea vomiting and diarrhea as well as flulike symptoms and fever over the weekend. On his leg, he does have a large red area that may be cellulitis it does appear somewhat vesicular in places and shingles would be a potential possibility as well. He has stable vital signs and is nontoxic on my evaluation I do think he needs to be admitted/observed we have given him IV antibiotics and we will be admitted for further treatment and evaluation .
--- NOTE | 2023-06-28 17:15 | XRay Report ---
XR tibia fibula LT 2V CLINICAL HISTORY: Erythematous LLE COMPARISON: Left tibia and fibula radiographs April 02, 2014. FINDINGS: No acute fracture within the left tibia or fibula is noted. There are old posttraumatic/po stoperative confines within the distal left tibia or fibula. No areas of bony erosion are identified. No soft tissue gas is identified by radiography. IMPRESSION: No acute osseous abnormality within the left tibia or fibula. ACT 112: Negative or not required by law. Electronically signed by: Ilir Doan M.D. 06/28/2023 5:13 PM
[2023-06-28] MEDS: POT PHOSPHATE MONOBASIC W/ SOD TAB PO STA (17:24)
--- NOTE | 2023-06-28 17:43 | CT Scan Report ---
CT femur LT wo con CLINICAL HISTORY: Left medial thigh cellulitis; potential abscess COMPARISON STUDY: Left lower extremity venous Doppler ultrasound performed earlier today. TECHNIQUE: Axial images of the left thigh and femur were obtained without IV contrast. Sagittal and c oronal reconstructions were viewed. Automated exposure control was utilized for the study. A dose lo wering technique was utilized adhering to the principles of ALARA. FINDINGS: Note is made of skin thickening and moderate subcutaneous stranding of the anterior medial left thigh. Stranding extends into the left pelvic sidewall. There is no soft tissue gas. No fluid co llection is identified on this unenhanced examination. No areas of bony erosion are identified. Mildl y enlarged left external iliac lymph node on image 51 of 513 measures 2.3 x 1.9 cm. A mildly enlarged left inguinal lymph node on image 127 measures 1.8 x 1.6 cm. No additional abnormalities are identif ied within visualized portions of the pelvis. There is also mild stranding within the left popliteal fossa. IMPRESSION: 1. Skin thickening with moderate subcutaneous stranding of the anterior medial left thigh extending i nto the left pelvic sidewall. This favors cellulitis. No fluid collection identified. No evidence for acute osteomyelitis. 2. Additional sites of subcutaneous stranding within the left lower extremity, including a left popli teal fossa. This stranding is nonspecific and could reflect edema or additional sites of cellulitis. No fluid collection identified. 3. Mildly enlarged left external iliac and inguinal lymph nodes which are likely reactive. A pelvis C T in 3 months to ensure resolution is recommended. ACT 112: Negative or not required by law. Electronically signed by: Ilir Doan M.D. 06/28/2023 5:41 PM
[2023-06-28] MEDS: LACTATED RINGER'S 1,000 ML IV SCH (18:50)
[2023-06-28] MEDS: ACETAMINOPHEN 325 MG TAB ONE ×2 (19:33→20:07)
[2023-06-28] MEDS ORDERED: ONDANSETRON INJ 2 MG/ML 2 ML VIAL IV PRN (19:53)
[2023-06-28] MEDS ORDERED: ACETAMINOPHEN 325 MG TAB PO PRN (19:53)
[2023-06-28] MEDS: ACETAMINOPHEN 325 MG TAB PO STA (20:06)
[2023-06-28] MEDS: ACETAMINOPHEN 325 MG TAB PO ONE (20:09)
[2023-06-28] MEDS: PIPERACILLIN/TAZOBACTAM 4.5 GM in DEXTROSE 5% MINI-B 100 ML IV SCH (21:30)
[2023-06-28] MEDS: POT PHOSPHATE MONOBASIC W/ SOD TAB PO SCH (21:34)
[2023-06-28] MEDS: ENOXAPARIN INJ 40 MG/0.4 ML SYR SQ SCH (21:34)
[2023-06-29] MEDS: DAPTOmycin 500 MG in SYRINGE 0 ML IV SCH (04:11)
[2023-06-29 06:42] LABS: Basophils # (auto) 0.03 K/uL (0.00-0.20); Basophils % (auto) 0.3 %; Eosinophils # (auto) 0.01 K/uL (0.00-0.50); Eosinophils % (auto) 0.1 %; Hematocrit (blood only) 34.2 % (42.0-52.0); Hemoglobin 11.8 g/dl (14.0-18.0); Immature Granulocytes # (auto) 0.12 K/uL (0.01-0.20); Immature Granulocytes % (auto) 1.3 %; Lymphocytes # (auto) 0.64 K/uL (1.20-3.40); Lymphocytes % (auto) 6.7 %; Mean Corpuscular Hemoglobin 31.9 pg (25.0-34.0); Mean Corpuscular Hgb Conc 34.5 g/dL (32.0-36.0); Mean Corpuscular Volume 92.4 fL (80.0-100.0); Mean Platelet Volume 9.9 fL (9.4-12.4); Monocytes # (auto) 0.41 K/uL (0.11-0.59); Monocytes % (auto) 4.3 %; Neutrophils # (auto) 8.36 K/uL (1.40-6.50); Neutrophils % (auto) 87.3 %; Platelet Count 125 K/uL (130-400); RDW Coefficient of Variation 12.5 % (11.5-14.5); RDW Standard Deviation 42.5 fL (36.4-46.3); White Blood Count 9.57 K/ul (4.8-10.8)
[2023-06-29 06:58] LABS: BUN Creatinine Ratio 14.3 (10-20); C Reactive Protein 16.52 mg/dl (0-0.5); Calcium 8.1 mg/dl (8.6-10.3); Creatinine Clr Calc Pharmacy 131.8 ml/min; Est GFR (African American) 116.7 ml/min; Est GFR (Non-African American) 100.7 ml/min; Magnesium 1.8 mg/dl (1.7-2.4); Phosphorus 1.8 mg/dl (2.5-4.9); Potassium 3.3 mmol/L (3.5-5.1)
[2023-06-29] MEDS: POTASSIUM CHLORIDE CRTAB 20 MEQ TABCR PO STA (08:26)
[2023-06-29] MEDS: NICOTINE 14 MG/24 HR PATCH TD SCH (08:28)
[2023-06-29] MEDS: FOLIC ACID 1 MG TAB PO SCH (08:28)
[2023-06-29] MEDS: THIAMINE HCL 100 MG TAB PO SCH (08:31)
[2023-06-29] MEDS: LOSARTAN POTASSIUM 50 MG TAB PO SCH (08:45)
[2023-06-29 10:41] LABS: Adenovirus F 40/41 PCR Not Detected (NotDetected); Astrovirus PCR Not Detected (NotDetected); Cryptosporidium PCR Not Detected (NotDetected); Cyclospora cayetanensis PCR Not Detected (NotDetected); Entamoeba histolytica PCR Not Detected (NotDetected); Enteroaggregative E.coli(EAEC) Not Detected (NotDetected); Enteropathogenic E.coli (EPEC) Not Detected (NotDetected); Enterotoxigenic E.coli (ETEC) Not Detected (NotDetected); Giardia lamblia PCR Not Detected (NotDetected); Norovirus GI/GII PCR Not Detected (NotDetected); Plesiomonas shigelloides PCR Not Detected (NotDetected); Rotavirus A PCR Not Detected (NotDetected); Salmonella PCR Not Detected (NotDetected); Sapovirus PCR Not Detected (NotDetected); Shiga-like Toxin E.coli (STEC) Not Detected (NotDetected); Shigella/Enteroinvasive E.coli Not Detected (NotDetected); Vibrio cholerae PCR Not Detected (NotDetected); Vibrio species PCR Not Detected (NotDetected); Yersinia enterocolitica PCR Not Detected (NotDetected)
[2023-06-29 11:25] LABS: Campylobacter PCR DETECTED (NotDetected)
--- NOTE | 2023-06-29 12:28 | Infectious Disease Consult ---
Date of Consultation June 29, 2023 Assessment & Plan (1) Cellulitis of left leg: (2) Campylobacter gastroenteritis: Plan 52yo M with h/o EtOH abuse, HTN, keflex allergy (has itching and hives), left ankle injury 2013, who presented on 06/27 with abdominal pain, n/v/d, chills/shaking, and fever to 103.8 since 06/25 and LLE erythema and pain since 06/26. On admission, he was afebrile, vss. WBC 12.68. Na 129, Cr 1.17, LFT wnl. ESR 58, CRP 25.68. PCT 4.84. Lyme neg, smear for Anaplasma and babesia negative. COVID/Flu and group A strep negative. CXR neg. LLE doppler negative for DVT. XR L tib/fib negative. CT L femur with skin thickening with moderate subcu stranding of the anterior medial left thigh extending into the left pelvic sidewall, noo fluid collection, no acute osteomyelitis; additional sites of subcu stranding in LLE including a left popliteal fossa. He was given a banana bag in the ED and has received vanc/zosyn. He was noted to have exudate on the back of his throat and strep swab sent which is negative. ID consulted 06/28 for further assistance. MRSA screen is negative, GIPP with Campylobacter. Regarding his left leg, he does have some blistering, ?vesicles, but this does not follow a clear dermatomal pattern to suggest a zoster/herpetic rash. Would continue treatment for skin/soft tissue infection. His MRSA is negative so we can stop daptomycin. Will keep on zosyn for now, especially while blood cultures are in process and with extent of erythema. There have been some rare reports of Campylobacter soft tissue infection, but that was in immunocompromise, which patient doesnt have. Regarding his diarrhea, Campylobacter has returned positive. Will start on azithromycin daily x 3 days, pending blood cultures. Given his reports of nausea/vomiting, will opt to not use the single 1g dose. # LLE erythema # Campylobacter gastroenteritis # EtOH abuse # Allergy to Keflex - Jessica started azithromycin for Campylobacter, 500mg daily - Jessica stopped daptomycin - continue on zosyn for now de-escalate when clinical improvement - follow up blood cultures ID will continue to follow. If questions or concerns, contact Infectious Disease Call Center . Karime Sood MD [facility], Division of Infectious Diseases [facility]: [phone] Consultation Information Consultation was provided via telemedicine using two-way real-time interactive telecommunication between the patient and the telemedicine provider. For the duration of the visit, the provider was performing the assessment from a different facility than the patient. This includesuse of bluetooth stethoscope forauscultationperformed by the telepresenter that the telemedicine provider can hear if described in the physical exam. Aquatic Performer contact information: Please call [facility] Call Center [phone]. (Phone Number For Physician Use Only) After establishing a telemedicine visit, patient was: Patient was verified with two unique identifiers, Patient/authorized rep acknowledged consent and understanding and Gave permission to continue telehealth session Time Spent with Patient: Initial => 75 min History of Present Illness Reason for Consultation: LLE erysipelas vs cellulitis Attending Physician: Zakia Santos MD History of Present Illness 52yo M with h/o EtOH abuse, HTN, keflex allergy (has itching and hives) who presented on 06/27 with abdominal pain, n/v/d, chills/shaking, and fever to 103.8 since 06/25. Also noted a pop in his left knee and has been limping since then. No other injuries to his left leg. He reported a burning sensation in his LLE. He has been taking Nyquil and Dayquil. Vomiting has resolved. Note he broke his ankle in 2013. He reported productive cough with yellow sputum, abdominal cramping, dizziness. No SOB or chest pain, dysuria. On admission, he was afebrile, vss. WBC 12.68. Na 129, Cr 1.17, LFT wnl. ESR 58, CRP 25.68. PCT 4.84. Lyme neg, smear for Anaplasma and babesia negative. COVID/Flu and group A strep negative. CXR neg. LLE doppler negative for DVT. XR L tib/fib negative. CT L femur with skin thickening with moderate subcu stranding of the anterior medial left thigh extending into the left pelvic sidewall, noo fluid collection, no acute osteomyelitis; additional sites of subcu stranding in LLE including a left popliteal fossa. He was given a banana bag in the ED and has received vanc/zosyn. He was noted to have exudate on the back of his throat and strep swab sent which is negative. ID consulted 06/28 for further assistance. On evaluation, patient says that he felt ill on Wednesday and developed fevers and diarrhea that evening. He has also been vomiting. He noticed the rash on his left leg on Wednesday morning. He notes pain in the leg if its touched or he walks. No joint pains or pain in his left ankle. No pruritus or open wounds or drainage. He does not have any other rashes or oral sores. No new drugs, no sick contacts. No travel recently, no outdoors activities or bug/tick bites. He has had chickenpox as a child. He denies having any burning pain prior to the development of the rash. Allergies Allergy/AdvReac Type Severity Reaction Status Date / Time amlodipine Allergy Severe MOOD CHANGE Verified 06/28/23 15:20 cephalexin Allergy Severe HIVES Verified 06/28/23 15:20 venom-wasp Allergy Severe Anaphylaxis Verified 06/28/23 15:20 Home Medications Medication Instructions Recorded Confirmed Type epinephrine 0.3 mg/0.3 mL 0.3 mg (0.3 mL) IM Q4H PRN 09/01/22 06/28/23 Rx injection, auto-injector (EpiPen anaphylaxis #1 ea 2-Kyrie) tadalafil 10 mg tablet (Cialis) 10 mg PO DAILY PRN sexual activity 03/16/23 06/28/23 Rx #20 tabs losartan 50 mg tablet 50 mg PO QAM 06/28/23 06/28/23 History Patient History Medical History Normal colonoscopy Encounter for screening for malignant neoplasm of rectum Encounter for screening for malignant neoplasm of colon Tobacco user Alcohol abuse Wasp sting-induced anaphylaxis HTN (hypertension) Left ankle sprain Surgical History S/P tonsillectomy and adenoidectomy S/P carpal tunnel release Family History Father Myocardial infarction Aunt Colorectal cancer Family/Other Family history of ischemic heart disease before age 50 Denies family history of Ovarian cancer Prostate cancer Breast cancer Social History (Updated 06/28/23 @ 17:27 by Zakia Santos MD) Smoking Status: Current every day smoker Tobacco Type: Cigarettes Cigarettes Per Day: 1 pack daily; Second Hand Exposure: Yes; Do You Dip or Chew Tobacco: No; Tobacco Cessation Education Requested by Patient: No Hx Alcohol Use: Yes Alcohol type: beer Hx Substance Use: No Preferred Language: Setswana Communication Ability: Effective Visual Impairment: No Limitations Hearing Ability: Normal 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 Physical Exam Physical Exam: General: Awake, alert, no acute distress HEENT: NC/AT, EOMI, mmm Neck: supple Lungs: respirations non-labored Heart: nl peripheral perfusion Abdomen: soft, NT/ND Back: no spinal tenderness, no rash on back Ext: left leg with bright well-demarcated rash, areas of blistering, not following dermatomal pattern Skin: rash as above Neuro: O x 3 Results & Data Vital Signs (Past 12 Hours) Vital Signs Temp Pulse Pulse Resp BP Pulse Ox O2 Del Method 06/29/23 11:30 37.4 C 63 20 125/72 94 Room Air 06/29/23 07:57 Room Air 06/29/23 07:23 37.5 C 83 19 140/81 96 Room Air 06/29/23 06:00 77 06/29/23 04:04 37.6 C H 77 16 142/89 H 97 Room Air Laboratory Results Labs reviewed Diagnostic Findings Imaging reviewed
--- NOTE | 2023-06-29 13:30 | Hospitalist Progress Note ---
Date of Service June 29, 2023 Assessment & Plan (1) Cellulitis: Plan: Circumferential LLE erythema that developed on Sunday 06/25 Patient reports that he felt sick Wednesday morning with N/V/D, fever, and chills, and that he felt a "pop" in his left lower leg while vomiting Wednesday night WBC 12.68 on admission and now trending down; afebrile on arrival, noted 103.8 F fever at home. Procal 4.8 on arrival and now trending downward Blood cultures remain NGTD Venous Doppler study revealed no evidence of DVT in the LLE Group A strep throat negative despite white exudate and erythema in throat XR tibia/fibula LT no OM, CT Left femur with edema/cellulitis but no abscess MRSA nasal swab negative Improving overall Question of vesicles from Shingles but no in a dermatomal pattern and could have vesicles from edema from erysipelas Consult ID appreciated--> dc Dapto as MRSA swab neg, continue Dapto Continue to monitor for improvement Consult DERM pending Follow CBC, BMP, CRP (2) Alcohol abuse: Plan: Patient reportedly drinks 7-8 beers per day Denies past history of alcohol withdrawal when stopping, or alcohol withdrawal seizures AWSS at risk protocol with Ativan Seizure precautions Folic acid 1 mg p.o. and thiamine 100 mg p.o. QAM (3) Hyponatremia: Plan: Na 129 on arrival likely secondary hypovolemia from vomiting and GI losses IVF resuscitation given and now Na+ improved to 133 Follow BMP (4) Hypophosphatemia: Plan: Phosphate low at 1.5 on arrival Potassium phosphate repletion x 4 tablets improved (5) Tobacco user: Plan: Nicotine patch application/removal daily encourage cessation (6) HTN (hypertension): Plan: BPs controlled Renal function okay on arrival ok to resume home losartan (7) Sepsis: Plan: Patient meets sepsis criteria based on mild tachycardia and WBC count in the ED; w/ source LLE cellulitis Lactate 1.1 on arrival IVF resuscitation and abx (as above) (8) Campylobacter gastroenteritis: Plan: had N/V/D prior to admission and ongoing diarrhea Stool PCR + for Campylobacter treat with azithro 500mg daily x 3 day course (9) Hypokalemia: Plan: mildly low replace with po KCL Follow BMP Plan Disposition: continued stay on PCU telemetry DNR/DNI VTE PPx: Lovenox 40 mg SQ q24h Admission and Anticipated Discharge Date Admission Date: June 28, 2023 Subjective Pt reports pain in LLE only with standing up and bearing weight, otherwise no pain. Had low grade fever last night but overall feeling a bit better. Denies MANNING, CP, SOB, nausea. Had one loose stool today, no blood in stool. No abd pain. Tele with NSR rates 70-80s I discussed his care with ID on phone I also discussed his care with DERM via [place] Text Physical Exam Physical Exam: Skin: Significant circumferential erythema and tenderness to palpation and hot to the touch of entire left leg starting at the ankle to the proximal tibia, and then medial left thigh with induration and no definite fluctuance, with some vesicles in the medial thigh and proximal tibia, milder erythema streaking up to left groin but not into groin. 3 small scabs on posterior medial left thigh all erythema starting to improve and receding from drawn marker lines Constitutional: WD/WN, vitals as above Respiratory: normal respiratory effort, lungs clear to auscultation Cardiovascular: RRR, no murmur, no edema Gastrointestinal (Abdomen): normal bowel sounds, soft, nontender, no hepatosplenomegaly Psychiatric: A+Ox3, euthymic affect Results & Data Results & Data Vital Signs (Past 12 Hours) Vital Signs Temp Pulse Pulse Resp BP Pulse Ox O2 Del Method 06/29/23 11:30 37.4 C 63 20 125/72 94 Room Air 06/29/23 07:57 Room Air 06/29/23 07:23 37.5 C 83 19 140/81 96 Room Air 06/29/23 06:00 77 06/29/23 04:04 37.6 C H 77 16 142/89 H 97 Room Air Laboratory Results CBC, ESR, CRP, mag,phos, procal, Stool PCR reviewed Blood cxs reviewed PG Care Time/CCT Total # of Minutes Spent Total Time Spent with Patient: Total time spent is greater than 50% in coordination of care (as documented) at patient's floor/unit and/or counseling patient: Coding Level of Care Code 96565 SUB INP/OBS CARE 3/50MIN Diagnoses Cellulitis L03.90 Alcohol abuse F10.10 Hyponatremia E87.1 Hypophosphatemia E83.39 Tobacco user Z72.0 HTN (hypertension) I10 Sepsis A41.9 Campylobacter gastroenteritis A04.5 Hypokalemia E87.6
[2023-06-29] MEDS: AZITHROMYCIN 250 MG TAB PO SCH (14:54)
[2023-06-29] MEDS ORDERED: DAPTOmycin 500 MG in SYRINGE 0 ML IV SCH (16:00)
[2023-06-29] MEDS: MELATONIN 3 MG TAB PO PRN (20:33)
[2023-06-30 07:05] LABS: Basophils # (auto) 0.03 K/uL (0.00-0.20); Basophils % (auto) 0.3 %; Eosinophils # (auto) 0.02 K/uL (0.00-0.50); Eosinophils % (auto) 0.2 %; Hematocrit (blood only) 32.5 % (42.0-52.0); Hemoglobin 11.7 g/dl (14.0-18.0); Immature Granulocytes # (auto) 0.09 K/uL (0.01-0.20); Lymphocytes # (auto) 0.94 K/uL (1.20-3.40); Lymphocytes % (auto) 10.2 %; Mean Corpuscular Hemoglobin 32.1 pg (25.0-34.0); Mean Corpuscular Volume 89.3 fL (80.0-100.0); Mean Platelet Volume 9.8 fL (9.4-12.4); Monocytes # (auto) 0.83 K/uL (0.11-0.59); Neutrophils # (auto) 7.28 K/uL (1.40-6.50); Neutrophils % (auto) 79.3 %; Platelet Count 125 K/uL (130-400); RDW Coefficient of Variation 12.5 % (11.5-14.5); RDW Standard Deviation 41.3 fL (36.4-46.3); Red Blood Count 3.64 M/uL (4.70-6.10); White Blood Count 9.19 K/ul (4.8-10.8)
[2023-06-30 07:25] LABS: BUN Creatinine Ratio 10.3 (10-20); Calcium 8.1 mg/dl (8.6-10.3); Creatinine Clr Calc Pharmacy 142.9 ml/min; Est GFR (African American) 120.3 ml/min; Est GFR (Non-African American) 103.8 ml/min; Potassium 2.9 mmol/L (3.5-5.1)
[2023-06-30] MEDS: POTASSIUM CHLORIDE CRTAB 20 MEQ TABCR PO SCH (09:24)
[2023-06-30] MEDS: MAGNESIUM SULFATE / D5W 1 GM/100 ML BAG IV ONE (10:14)
--- NOTE | 2023-06-30 13:14 | Dermatology Consultation ---
Date of Consultation June 30, 2023 Assessment & Plan (1) Erysipelas of left lower extremity: Exam is c/w erysipelas (i.e. superficial cellulitis with associated lymphangitis). This is most commonly caused by beta-hemolytic strep, but staph and other organisms can also be culprits less frequently. Unfortunately the entry of infection is not completely clear based on his history/examination. Recommend the followin) Agree with ID in continuing Zosyn for coverage as patient seems to be gradually improving. Systemic symptoms typically subside in 1-2 days of the right antibiotic; skin improvement can sometimes take 3-4 days. My recommendation would be for a total of 14 days of antimicrobial coverage, but this can be confirmed with ID given that they are already on board. De- escalation to oral antibiotic can be performed when patient status has improved to the point of potential discharge. 2) Keep leg elevated above level of the heart when at rest to assist with lymphatic drainage. Thanks for the consult. Call with questions/concerns. Present on Admission?: Yes History of Present Illness Reason for Consultation: Rash on left leg Requesting Physician: Zakia Santos MD Attending Physician: Zakia Santos MD History of Present Illness Patient is a 52 y/o WM with history of HTN and EtOH abuse admitted to [facility] on 06/28/2023 with fever/chills, nausea/vomiting/diarrhea and worsening rash/swelling of the left lower leg. Patient reports that he developed fevers/chills and bodyaches while at work on 06/26/2023. Later that day he developed nausea, vomiting and diarrhea. Then on 06/27/2023 he developed acute swelling, redness and pain involving the left lower leg. This gradually worsened over the next 24 hours prompting him to present to [facility] ED. At time of presentation he was noted to have elevated WBC (12.68). Ultrasound of the left lower leg was negative for DVT; X-ray of the left tib/fib was negative; CT scan of the left femur was suggestive of cellulitis without any fluid collection. Blood cultures have shown no growth. ID has been consulted and has recommended zosyn for antimicrobial coverage. Patient reports some decreased redness over the past 24 hours, but he still complains of swelling which worsens with ambulation. He denies any rash elsewhere on the body. He denies any new activity, travel, trauma to the left leg or know breaks in the skin/bites prior to onset. No other complaints today. Allergies Allergy/AdvReac Type Severity Reaction Status Date / Time amlodipine Allergy Severe MOOD CHANGE Verified 06/28/23 15:20 cephalexin Allergy Severe HIVES Verified 06/28/23 15:20 venom-wasp Allergy Severe Anaphylaxis Verified 06/28/23 15:20 Home Medications Medication Instructions Recorded Confirmed Type epinephrine 0.3 mg/0.3 mL 0.3 mg (0.3 mL) IM Q4H PRN 09/01/22 06/28/23 Rx injection, auto-injector (EpiPen anaphylaxis #1 ea 2-Kyrie) tadalafil 10 mg tablet (Cialis) 10 mg PO DAILY PRN sexual activity 03/16/23 06/28/23 Rx #20 tabs losartan 50 mg tablet 50 mg PO QAM 06/28/23 06/28/23 History Patient History Medical History (Updated 06/30/23 @ 13:13 by Keith Marinelli MD) Erysipelas of left lower extremity Normal colonoscopy Encounter for screening for malignant neoplasm of rectum Encounter for screening for malignant neoplasm of colon Tobacco user Alcohol abuse Wasp sting-induced anaphylaxis HTN (hypertension) Left ankle sprain Surgical History S/P tonsillectomy and adenoidectomy S/P carpal tunnel release Family History Father Myocardial infarction Aunt Colorectal cancer Family/Other Family history of ischemic heart disease before age 50 Denies family history of Ovarian cancer Prostate cancer Breast cancer Social History (Updated 06/28/23 @ 17:27 by Zakia Santos MD) Smoking Status: Current every day smoker Tobacco Type: Cigarettes Cigarettes Per Day: 1 pack daily; Second Hand Exposure: Yes; Do You Dip or Chew Tobacco: No; Tobacco Cessation Education Requested by Patient: No Hx Alcohol Use: Yes Alcohol type: beer Hx Substance Use: No Preferred Language: Welsh Communication Ability: Effective Visual Impairment: No Limitations Hearing Ability: Normal Staff Anesthesiologist Required: No Beliefs That Will Affect Care: None marital status: Current Living Situation: Alone Feels Safe at Home: Yes Safety Concerns: Feels Safe At This Time Seatbelt Use: always Assistive Devices: None Review of Systems Review of Systems: All systems reviewed & are unremarkable except as noted in Subjective Physical Exam Physical Exam: General Appearance:Well developed, well-nourished and in no acute distress; non-toxic Psych:Alert, Oriented and Appropriate Skin Type:2 Face: No abnormalities noted. Right Lower Extremity:No abnormalities noted. Left Lower Extremity:well-demarcated, warm, edematous, indurated plaques with pseudovesiculation (peau d'orange surface change) involving the distal medial thigh, popliteal fossa, farah/calf, ankle Right Upper Extremity:No abnormalities noted. Left Upper Extremity:No abnormalities noted. Abdomen:No abnormalities noted. Nails: No abnormalities noted. Other exam notes: No palpable popliteal/inguinal lymphadenopathy. Results & Data Vital Signs (Past 12 Hours) Vital Signs Temp Pulse Pulse Resp BP BP Pulse Ox 06/30/23 11:30 36.9 C 72 18 135/78 97 06/30/23 07:55 70 06/30/23 07:53 36.8 C 78 23 135/71 96 06/30/23 03:24 37.5 C 79 22 131/70 97 O2 Del Method 06/30/23 11:30 Room Air 06/30/23 07:55 06/30/23 07:53 Room Air 06/30/23 03:24 Room Air Laboratory Results 06/30/23 Range/Units 06:39 WBC 9.19 (4.8-10.8) K/ul RBC 3.64 L (4.70-6.10) M/uL Hgb 11.7 L (14.0-18.0) g/dl Hct 32.5 L (42.0-52.0) % MCV 89.3 (80.0-100.0) fL MCH 32.1 (25.0-34.0) pg MCHC 36.0 (32.0-36.0) g/dL RDW Std Deviation 41.3 (36.4-46.3) fL RDW Coeff of Kush 12.5 (11.5-14.5) % Plt Count 125 L (130-400) K/uL MPV 9.8 (9.4-12.4) fL Immature Gran % (Auto) 1.0 % Neut % (Auto) 79.3 % Lymph % (Auto) 10.2 % [place] % (Auto) 9.0 % Eos % (Auto) 0.2 % Baso % (Auto) 0.3 % Neut # (Auto) 7.28 H (1.40-6.50) K/uL Lymph # (Auto) 0.94 L (1.20-3.40) K/uL [place] # (Auto) 0.83 H (0.11-0.59) K/uL Eos # (Auto) 0.02 (0.00-0.50) K/uL Baso # (Auto) 0.03 (0.00-0.20) K/uL Immature Gran # (Auto) 0.09 (0.01-0.20) K/uL Sodium 134 L (136-145) mmol/L Potassium 2.9 L (3.5-5.1) mmol/L Chloride 101 (98-107) mmol/L Carbon Dioxide 25 (21-32) mmol/L Anion Gap 8 (3-11) BUN 8 (6-23) mg/dl Creatinine 0.78 (0.6-1.4) mg/dl Est Cr Clr Drug Dosing 142.9 ml/min Est GFR ( Amer) 120.3 ml/min Est GFR (Non-Af Amer) 103.8 ml/min BUN/Creatinine Ratio 10.3 (10-20) Glucose 91 (70-99(Fasting)) mg/dl Calcium 8.1 L (8.6-10.3) mg/dl Diagnostic Findings Imaging and Microbiology studies reviewed in [facility]. Medications Administered MAR reviewed in [facility]. PG Care Time/CCT Total # of Minutes Spent Total Time Spent with Patient: Total time spent is greater than 50% in coordination of care (as documented) at patient's floor/unit and/or counseling patient: Coding Level of Care Code 75745 IN/OBS CONSULT LVL 3,45M Diagnoses Erysipelas of left lower extremity A46
--- NOTE | 2023-06-30 13:27 | Infectious Disease Progress Nt ---
Date of Service June 30, 2023 Assessment & Plan (1) Cellulitis of left leg: (2) Campylobacter gastroenteritis: Plan 52yo M with h/o EtOH abuse, HTN, keflex allergy (has itching and hives), left ankle injury 2013, who presented on 06/27 with abdominal pain, n/v/d, chills/shaking, and fever to 103.8 since 06/25 and LLE erythema and pain since 06/26. On admission, he was afebrile, vss. WBC 12.68. Na 129, Cr 1.17, LFT wnl. ESR 58, CRP 25.68. PCT 4.84. Lyme neg, smear for Anaplasma and babesia negative. COVID/Flu and group A strep negative. CXR neg. LLE doppler negative for DVT. XR L tib/fib negative. CT L femur with skin thickening with moderate subcu stranding of the anterior medial left thigh extending into the left pelvic sidewall, noo fluid collection, no acute osteomyelitis; additional sites of subcu stranding in LLE including a left popliteal fossa. He was given a banana bag in the ED and has received vanc/zosyn. He was noted to have exudate on the back of his throat and strep swab sent which is negative. ID consulted 06/28 for further assistance. MRSA screen is negative, GIPP with Campylobacter. He has some increased swelling in left leg but erythema is not worse, WBC wnl today. If his leg continues to feel worse today or worsening erythema (after 48hrs of abx), can consider adding back vancomycin or daptomycin. Its possible the blistering/?vesicles are related to his cellulitis, however given unclear appearance, dermatology input would be helpful and whether they think swab for HSV/VZV may be necessary. Continue on zosyn. He is on azithromycin for Campylobacter. # LLE erythema/swelling c/f SSTI # Campylobacter gastroenteritis # EtOH abuse # Allergy to Keflex - continue azithromycin 500mg daily for Campylobacter - continue on zosyn for now de-escalate when clinical improvement - will f/u on dermatology input for what appears like ?vesicles on leg and ?HSV/VZV - follow up blood cultures - if any clinical worsening in left leg, then consider adding back MRSA coverage ID will continue to follow. If questions or concerns, contact Infectious Disease Call Center . Karime Sood MD [facility], Division of Infectious Diseases [facility]: [phone] Admission and Anticipated Discharge Date Admission Date: June 28, 2023 Subjective Subsequent visit was provided via telemedicine using two-way real-time interactive telecommunication between the patient and the telemedicine provider. For the duration of the visit, the provider was performing the assessment from a different facility than the patient. This includesuse of bluetooth stethoscope forauscultationperformed by the telepresenter that the telemedicine provider can hear if described in the physical exam. Crystal Lapper contact information: Please call [facility] Call Center . (Phone Number For Physician Use Only) After establishing a telemedicine visit, patient was: Patient was verified with two unique identifiers, Patient/authorized rep acknowledged consent and understanding and Gave permission to continue telehealth session Time Spent with Patient: Subsequent => 55 min Patient reports some increased swelling of left leg today. Redness is not worse. Physical Exam Physical Exam: General: Awake, alert, no acute distress HEENT: NC/AT, EOMI, mmm Neck: supple, no LAD Lungs: respirations non-labored Heart: nl peripheral perfusion Abdomen: soft, NT/ND Left leg: bright erythema within the outline, circumferential, +swelling Results & Data Vital Signs (Past 12 Hours) Vital Signs Temp Pulse Pulse Resp BP BP Pulse Ox 06/30/23 11:30 36.9 C 72 18 135/78 97 06/30/23 07:55 70 06/30/23 07:53 36.8 C 78 23 135/71 96 06/30/23 03:24 37.5 C 79 22 131/70 97 O2 Del Method 06/30/23 11:30 Room Air 06/30/23 07:55 06/30/23 07:53 Room Air 06/30/23 03:24 Room Air
--- NOTE | 2023-06-30 18:18 | Hospitalist Progress Note ---
Date of Service June 30, 2023 Assessment & Plan (1) Erysipelas of left lower extremity: Plan: Circumferential LLE erythema leg and medial thigh that developed on Sunday 06/25 Patient reports that he felt sick Wednesday morning with N/V/D, fever, and chills, and that he felt a "pop" in his left lower leg while vomiting Wednesday night WBC 12.68 on admission and now normalized; afebrile here except some low grade temps, noted 103.8 F fever at home. Procal 4.8 on arrival and now trending downward Blood cultures remain NGTD Venous Doppler study revealed no evidence of DVT in the LLE Group A strep throat negative despite white exudate and erythema in throat XR tibia/fibula LT no OM, CT Left femur with edema/cellulitis but no abscess MRSA nasal swab negative Improving overall, slowly Question of vesicles from Shingles but not in a dermatomal pattern -appreciate DERM consult-this is pseudo-vesiculation from edema from erysipelas and not shingles Consult ID appreciated--> dcd Dapto as MRSA swab neg, continue Zosyn. Add Dapto back if clinically worsens off Dapto Continue to monitor for improvement Follow CBC, BMP, CRP Continue to keep LLE elevated above heart to reduce edema,erythema (2) Sepsis: Plan: Patient meets sepsis criteria based on mild tachycardia and leukocytosis, w/ source LLE cellulitis Lactate 1.1 on arrival, normal BPs IVF resuscitation and abx (as above) Follow BCxs-NGTD (3) Hypokalemia: Plan: much lower today at 2.9, likely from poor po intake which is now improving replace with po KCL 40 meq x 2 today give 1 gram IV magnesium Follow BMP, Mag in AM (4) Campylobacter gastroenteritis: Plan: had N/V/D prior to admission and ongoing diarrhea 5x/day, improving Stool PCR + for Campylobacter treat with azithro 500mg daily x 3 day course (5) Alcohol abuse: Plan: Patient reportedly drinks 7-8 beers per day Denies past history of alcohol withdrawal when stopping, or alcohol withdrawal seizures No withdrawal symptoms here at all, fairly low risk at this point, can discontinue AWSS tomorrow AWSS at risk protocol with Ativan Seizure precautions Folic acid 1 mg p.o. and thiamine 100 mg p.o. QAM (6) Hyponatremia: Plan: Na 129 on arrival likely secondary hypovolemia from vomiting and GI losses IVF resuscitation given and now Na+ improved to 134 Po intake improved Follow BMP (7) Hypophosphatemia: Plan: Phosphate low at 1.5 on arrival Potassium phosphate repletion x 4 tablets improved (8) Tobacco user: Plan: Nicotine patch application/removal daily encourage cessation (9) HTN (hypertension): Plan: BPs controlled Renal function normal continue home losartan Plan Disposition: continued stay on PCU telemetry for hypokalemia but can downgrade tomorrow if improving DNR/DNI VTE PPx: Lovenox 40 mg SQ q24h Admission and Anticipated Discharge Date Admission Date: June 28, 2023 Subjective Pt reports this AM his leg and thigh were much more swollen than previous. SInce then, he has been elevating it more and now feels greatly improved. Denies CP, SOB. No abd pain but has had 5 loose stools today. Appetite is finally picking back up. I discussed his case with Derm and ID today Tele with NSR, rate 70s Physical Exam Physical Exam: Skin: Significant circumferential erythema of entire left leg starting at the ankle to the proximal tibia, and then medial left thigh with less induration and no fluctuance, with some vesicles in the medial thigh and proximal calf, milder erythema streaking up to left groin but not into groin and is also improved/less. 3 small scabs on posterior medial left thigh all erythema continues to improve and receding from drawn marker lines Constitutional: WD/WN, vitals as above Respiratory: normal respiratory effort, lungs clear to auscultation Cardiovascular: RRR, no murmur, no edema Gastrointestinal (Abdomen): normal bowel sounds, soft, nontender, no hepatosplenomegaly Psychiatric: A+Ox3, euthymic affect Results & Data Results & Data Vital Signs (Past 12 Hours) Vital Signs Temp Pulse Pulse Resp BP BP Pulse Ox 06/30/23 15:20 36.8 C 73 20 140/97 97 06/30/23 15:16 72 06/30/23 11:30 36.9 C 72 18 135/78 97 06/30/23 07:55 70 06/30/23 07:53 36.8 C 78 23 135/71 96 O2 Del Method 06/30/23 15:20 Room Air 06/30/23 15:16 06/30/23 11:30 Room Air 06/30/23 07:55 06/30/23 07:53 Room Air Laboratory Results CBC, BMP, blood cultures reviewed PG Care Time/CCT Total # of Minutes Spent Total Time Spent with Patient: Total time spent is greater than 50% in coordination of care (as documented) at patient's floor/unit and/or counseling patient: Coding Level of Care Code 58209 SUB INP/OBS CARE 3/50MIN Diagnoses Erysipelas of left lower extremity A46 Sepsis A41.9 Hypokalemia E87.6 Campylobacter gastroenteritis A04.5 Alcohol abuse F10.10 Hyponatremia E87.1 Hypophosphatemia E83.39 Tobacco user Z72.0 HTN (hypertension) I10
[2023-07-01 06:48] LABS: Basophils # (auto) 0.04 K/uL (0.00-0.20); Basophils % (auto) 0.4 %; Eosinophils # (auto) 0.09 K/uL (0.00-0.50); Hematocrit (blood only) 32.7 % (42.0-52.0); Hemoglobin 11.6 g/dl (14.0-18.0); Immature Granulocytes # (auto) 0.14 K/uL (0.01-0.20); Immature Granulocytes % (auto) 1.5 %; Lymphocytes # (auto) 1.11 K/uL (1.20-3.40); Lymphocytes % (auto) 11.8 %; Mean Corpuscular Hgb Conc 35.5 g/dL (32.0-36.0); Mean Corpuscular Volume 90.3 fL (80.0-100.0); Mean Platelet Volume 10.2 fL (9.4-12.4); Monocytes # (auto) 0.93 K/uL (0.11-0.59); Monocytes % (auto) 9.9 %; Neutrophils # (auto) 7.06 K/uL (1.40-6.50); Neutrophils % (auto) 75.4 %; Platelet Count 137 K/uL (130-400); RDW Coefficient of Variation 12.6 % (11.5-14.5); RDW Standard Deviation 41.8 fL (36.4-46.3); Red Blood Count 3.62 M/uL (4.70-6.10); White Blood Count 9.37 K/ul (4.8-10.8)
[2023-07-01 06:57] LABS: BUN Creatinine Ratio 7.8 (10-20); C Reactive Protein 11.09 mg/dl (0-0.5); Calcium 8.2 mg/dl (8.6-10.3); Creatinine Clr Calc Pharmacy 145.5 ml/min; Est GFR (African American) 120.9 ml/min; Est GFR (Non-African American) 104.3 ml/min; Magnesium 2.1 mg/dl (1.7-2.4); Potassium 2.9 mmol/L (3.5-5.1)
[2023-07-01] MEDS: POTASSIUM CHLORIDE CRTAB 20 MEQ TABCR PO SCH (09:31)
--- NOTE | 2023-07-01 13:03 | Infectious Disease Progress Nt ---
Date of Service July 01, 2023 Assessment & Plan (1) Cellulitis of left leg: (2) Campylobacter gastroenteritis: Plan 52yo M with h/o EtOH abuse, HTN, keflex allergy (has itching and hives), left ankle injury 2013, who presented on 06/27 with abdominal pain, n/v/d, chills/shaking, and fever to 103.8 since 06/25 and LLE erythema and pain since 06/26. On admission, he was afebrile, vss. WBC 12.68. Na 129, Cr 1.17, LFT wnl. ESR 58, CRP 25.68. PCT 4.84. Lyme neg, smear for Anaplasma and babesia negative. COVID/Flu and group A strep negative. CXR neg. LLE doppler negative for DVT. XR L tib/fib negative. CT L femur with skin thickening with moderate subcu stranding of the anterior medial left thigh extending into the left pelvic sidewall, noo fluid collection, no acute osteomyelitis; additional sites of subcu stranding in LLE including a left popliteal fossa. He was given a banana bag in the ED and has received vanc/zosyn. He was noted to have exudate on the back of his throat and strep swab sent which is negative. ID consulted 06/28 for further assistance. MRSA screen is negative, GIPP with Campylobacter. Seen by Derm. Patient refused to be seen and told the telepresenter he feels better. BCx remain negative, WBC wnl. Continue IV antibiotics and if he is clinically im proving, would de-escalate zosyn to Unasyn. Note he has an allergy to keflex, but has been tolerating zosyn well. If hes ready for discharge, would change abx to augmentin to complete 7-10 days. Complete 3 days of azithromycin for Campylobacter (today is day 3). # LLE erysipelas # Campylobacter gastroenteritis # EtOH abuse # Allergy to Keflex - continue azithromycin 500mg daily for Campylobacter (last day today to complete 3 doses) - on zosyn, de-escalate to Unasyn 3g IV q6h if there is clinical improvement - when ready for discharge, he can complete 7-10 days of abx (can be dcd on A ugmentin 875mg PO bid) Karime Sood MD [facility], Division of Infectious Diseases [facility]: [phone] Admission and Anticipated Discharge Date Admission Date: June 28, 2023 Subjective This patient recommendation is based on a telemedicine consult request which was completed asynchronously through chart review and information provided by the primary physician. The patient was not seen or examined today. The evaluation is consultative in nature and all patient care and treatment decisions can either be accepted or rejected by the patient's primary hospital-based treating physician using their own independent medical judgment for their patient. Time Spent Reviewing Chart: 31+ minutes Patient refused to be seen. He told the telepresenter he was doing better. Results & Data Vital Signs (Past 12 Hours) Vital Signs Temp Pulse Pulse Resp BP Pulse Ox O2 Del Method 07/01/23 11:09 36.4 C L 68 17 147/94 H 98 Room Air 07/01/23 08:01 68 07/01/23 07:13 36.9 C 67 20 134/81 96 Room Air 07/01/23 03:25 36.9 C 78 17 134/70 97 Room Air Laboratory Results labs reviewed
--- NOTE | 2023-07-01 15:58 | Hospitalist Progress Note ---
Date of Service July 01, 2023 Assessment & Plan (1) Erysipelas of left lower extremity: Plan: Circumferential LLE erythema leg and medial thigh that developed on Sunday 06/25 Patient reports that he felt sick Wednesday morning with N/V/D, fever, and chills, and that he felt a "pop" in his left lower leg while vomiting Wednesday night WBC 12.68 on admission and now normalized; afebrile here except some low grade temps which are now resolved (noted 103.8 F fever at home). Procal 4.8 on arrival and now continues to be trending downward. CRP also trending down from 26 to 11 Blood cultures remain NGTD Erythema and induration improving Venous Doppler study revealed no evidence of DVT in the LLE Group A strep throat negative despite white exudate and erythema in throat XR tibia/fibula LT no OM, CT Left femur with edema/cellulitis but no abscess MRSA nasal swab negative Question of vesicles from Shingles but not in a dermatomal pattern -appreciate DERM consult-this is pseudo-vesiculation from edema from erysipelas and not shingles Consult ID appreciated--> dcd Dapto as MRSA swab neg, continue Zosyn. Add Dapto back if clinically worsens off Dapto Continue to monitor for improvement Follow CBC, BMP, CRP Continue to keep LLE elevated above heart to reduce edema,erythema Plan to likely convert to po antibiotics tomorrow and discharge (2) Sepsis: Plan: Patient meets sepsis criteria based on mild tachycardia and leukocytosis, w/ source LLE cellulitis Lactate 1.1 on arrival, normal BPs IVF resuscitation and abx (as above) Mild thrombocytopenia also likely from sepsis, now improving Follow BCxs-NGTD (3) Hypokalemia: Plan: significantly low again today at 2.9, likely from poor po intake which is now improving replace with po KCL 40 meq x 3 today magnesium is normal Follow BMP, Mag in AM (4) Campylobacter gastroenteritis: Plan: had N/V/D prior to admission and now finally resolved after azithro tx Stool PCR + for Campylobacter treat with azithro 500mg daily x 3 day course-completed course today (5) Alcohol abuse: Plan: Patient reportedly drinks 7-8 beers per day Denies past history of alcohol withdrawal when stopping, or alcohol withdrawal seizures No withdrawal symptoms here at all, fairly low risk at this point, can discontinue AWSS Continue Folic acid 1 mg p.o. and thiamine 100 mg p.o. QAM (6) Hyponatremia: Plan: Na 129 on arrival likely secondary hypovolemia from vomiting and GI losses IVF resuscitation given and now Na+ improved to 134 and stable Po intake improved Follow BMP (7) Hypophosphatemia: Plan: Phosphate low at 1.5 on arrival Potassium phosphate repletion x 4 tablets improved (8) Tobacco user: Plan: Nicotine patch application/removal daily encourage cessation (9) HTN (hypertension): Plan: BPs controlled Renal function normal continue home losartan Plan Disposition: continued stay on PCU telemetry for hypokalemia, likely dc to home tomrorow DNR/DNI VTE PPx: Lovenox 40 mg SQ q24h Admission and Anticipated Discharge Date Admission Date: June 28, 2023 Subjective Feeling better each day. Pain in leg much reduced. Swelling he feels is down. No sweats or chills. Diarrhea is completely resolved. Tele with NSR normal rates Physical Exam Physical Exam: Skin: Significant circumferential erythema of entire left leg starting at the ankle to the proximal tibia, and then medial left thigh with significantly less induration and no fluctuance, with some vesicles in the medial thigh and proximal calf, milder erythema streaking up to left groin but not into groin and is also improved/less. 3 small scabs on posterior medial left thigh all erythema continues to improve and receding from drawn marker lines rash becoming more dark/purplish in color consistent with healing Constitutional: WD/WN, vitals as above Respiratory: normal respiratory effort, lungs clear to auscultation Cardiovascular: RRR, no murmur, no edema Gastrointestinal (Abdomen): normal bowel sounds, soft, nontender, no hepatosplenomegaly Psychiatric: A+Ox3, euthymic affect Results & Data Results & Data Vital Signs (Past 12 Hours) Vital Signs Temp Pulse Pulse Resp BP Pulse Ox O2 Del Method 07/01/23 11:09 36.4 C L 68 17 147/94 H 98 Room Air 07/01/23 08:01 68 07/01/23 07:13 36.9 C 67 20 134/81 96 Room Air Laboratory Results CBC, BMP, CRP, procal,magnesium reviewed Blood cxs reviewed PG Care Time/CCT Total # of Minutes Spent Total Time Spent with Patient: Total time spent is greater than 50% in coordination of care (as documented) at patient's floor/unit and/or counseling patient: Coding Level of Care Code 55223 SUB INP/OBS CARE 3/50MIN Diagnoses Erysipelas of left lower extremity A46 Sepsis A41.9 Hypokalemia E87.6 Campylobacter gastroenteritis A04.5 Alcohol abuse F10.10 Hyponatremia E87.1 Hypophosphatemia E83.39 Tobacco user Z72.0 HTN (hypertension) I10
[2023-07-01] MEDS: AMPICILLIN/SULBACTAM SOD 3,000 MG in SODIUM CHLOR 0.9% MINI-B 100 ML IV SCH (16:53)
[2023-07-02 06:34] LABS: Hematocrit (blood only) 32.1 % (42.0-52.0); Hemoglobin 11.4 g/dl (14.0-18.0); Mean Corpuscular Hemoglobin 32.4 pg (25.0-34.0); Mean Corpuscular Hgb Conc 35.5 g/dL (32.0-36.0); Mean Corpuscular Volume 91.2 fL (80.0-100.0); Mean Platelet Volume 9.9 fL (9.4-12.4); Platelet Count 179 K/uL (130-400); RDW Coefficient of Variation 12.7 % (11.5-14.5); RDW Standard Deviation 42.4 fL (36.4-46.3); Red Blood Count 3.52 M/uL (4.70-6.10); White Blood Count 9.17 K/ul (4.8-10.8)
[2023-07-02 07:12] LABS: Albumin Globulin Ratio 1.2 (0.9-2); Albumin Level 3.3 gm/dl (3.4-5.0); BUN Creatinine Ratio 8.1 (10-20); Bilirubin,Total 0.8 mg/dl (0.2-1.0); Calcium 8.4 mg/dl (8.6-10.3); Creatinine Clr Calc Pharmacy 151.3 ml/min; Est GFR (African American) 122.9 ml/min; Est GFR (Non-African American) 106.1 ml/min; Globulin 2.7 gm/dl (2.5-4.0); Magnesium 2.3 mg/dl (1.7-2.4); Potassium 3.6 mmol/L (3.5-5.1)
[2023-07-02 07:16] LABS: Basophils # (auto) 0.04 K/uL (0.00-0.20); Basophils % (auto) 0.4 %; Eosinophils # (auto) 0.13 K/uL (0.00-0.50); Eosinophils % (auto) 1.4 %; Immature Granulocytes # (auto) 0.27 K/uL (0.01-0.20); Immature Granulocytes % (auto) 2.9 %; Lymphocytes # (auto) 1.31 K/uL (1.20-3.40); Lymphocytes % (auto) 14.3 %; Monocytes # (auto) 0.87 K/uL (0.11-0.59); Monocytes % (auto) 9.5 %; Neutrophils # (auto) 6.55 K/uL (1.40-6.50); Neutrophils % (auto) 71.5 %
[2023-07-02] MEDS: POTASSIUM CHLORIDE CRTAB 20 MEQ TABCR PO STA (09:21)
--- NOTE | 2023-07-02 13:00 | Discharge Summary ---
Discharge Summary Date of Service July 02, 2023 Notes For Next Care Provider Medication Changes From Visit Added Augmentin 875/125mg po bid x 9 more days Admission HPI Per Admitting Provider Harsha is a 52-year-old male with PMH of HTN, alcohol abuse, tobacco use, and anaphylaxis. He presented for abdominal pain, N/V/D, chills/shaking, and fever that started on Sunday 06/25. Patient also notes that he felt a "pop" in his left knee when vomiting the evening of Wednesday, and has been limping since. Patient denies any other recent injuries or trauma to the left lower extremity. No history of cellulitis, gout, or recent tick bites. He describes the pain in his left lower extremity as a "burning sensation" that is worse when it is palpated; rated 8/10 at worst. He has not been applying any lotions or points to the leg. Patient does note that he broke his left ankle in 2013. Patient notes that his symptoms started on Wednesday, and that he developed a 103.8 F fe leonides at home for which he has been taking NyQuil and DayQuil without relief. He also notes he has been vomiting since Wednesday, however this resolved on Wednesday. Patient reports that he is sexually active, but nothing within the past month. He reports that he only takes losartan on a daily basis, and last took it this morning. Patient is a current everyday tobacco cigarette smoker; 1 PPD. He al so endorses alcohol use 78 beers per day; he denies history of alcohol withdrawal when stopping in the past, or withdrawal seizures. Patient also notes he does have an allergy to Keflex, and that he usually gets itchy and has hives when he takes it; no history of anaphylaxis. Patient's vitals are stable at time of admission. ED course: Banana bag x 1 Zosyn 4.5 g IV Vancomycin 2000 mg IV ROS: Patient endorses fever, chills, dizziness with walking, headache, productive cough (yellow sputum production), abdominal cramping, diarrhea, and pain to palpation of the left lower extremity. Patient denies changes in vision/hearing/taste/smell, chest pain, pleuritic CP, SOB,, urinary symptoms, burning with urination, blood in stool/urine, or numbness/tingling going down the legs bilaterally. Principal Dx & Hospital Course #1 = Principal Diagnosis (1) Erysipelas of left lower extremity: Circumferential LLE erythema leg and medial thigh that developed on Sunday 06/25 Patient reports that he felt sick Wednesday morning with N/V/D, fever, and chills, and that he felt a "pop" in his left lower leg while vomiting Wednesday night WBC 12.68 on admission and now normalized; had fever to 103.8 at home and had some low grade temps which are now resolved Procal 4.8 on arrival and now continues to be trending downward. CRP also trending down from 26 to 11 Blood cultures remain NGTD at time of discharge Erythema and induration improving daily Venous Doppler study revealed no evidence of DVT in the LLE Group A strep throat negative despite white exudate and erythema in throat on admission XR tibia/fibula LT no OM, CT Left femur with edema/cellulitis but no abscess MRSA nasal swab negative Question of vesicles from Shingles but not in a dermatomal pattern -appreciate DERM consult-this is pseudo-vesiculation from edema from erysipelas and not shingles Consult ID appreciated--> dcd Dapto as MRSA swab neg, continued on Zosyn x 3 days and then de-escalated to Unasyn---> dc to home on Augmentin to finish out 14 day course of po abx as per DERM recommendation Continue to keep LLE elevated above heart to reduce edema,erythema (2) Sepsis: Patient meets sepsis criteria based on mild tachycardia and leukocytosis, w/ source LLE cellulitis Lactate 1.1 on arrival, normal BPs IVF resuscitation and abx (as above) Mild thrombocytopenia also likely from sepsis, now reoslved Follow BCxs-NGTD (3) Hypokalemia: significantly low at 2.9 on two occasions, likely from poor po intake which is now improving replaced with po KCL and now resolved magnesium is normal (4) Campylobacter gastroenteritis: had N/V/D prior to admission and now finally resolved after azithro tx Stool PCR + for Campylobacter treat with azithro 500mg daily x 3 day course-completed course (5) Alcohol abuse: Patient reportedly drinks 7-8 beers per day Denies past history of alcohol withdrawal when stopping, or alcohol withdrawal seizures No withdrawal symptoms here at all, fairly low risk at this point,did not require Ativan received Folic acid 1 mg p.o. and thiamine 100 mg p.o. QAM while here he is committed to cutting way down on his EtOH intake (6) Hyponatremia: Na 129 on arrival likely secondary hypovolemia from vomiting and GI losses IVF resuscitation given and now Na+ improved to 135 Po intake improved (7) Hypophosphatemia: Phosphate low at 1.5 on arrival Potassium phosphate repletion x 4 tablets improved (8) Tobacco user: Nicotine patch recommended nd cessation counseling given-he is committed to quitting (9) HTN (hypertension): BPs controlled Renal function normal continue home losartan Plan Disposition: dc to home today DNR/DNI VTE PPx: Lovenox 40 mg SQ q24h Discharge Exam Skin: Significant circumferential erythema of entire left leg starting at the ankle to the proximal tibia, and then medial left thigh with significantly less induration and no fluctuance, with some vesicles in the medial thigh and proximal calf, milder erythema streaking up to left groin but not into groin and is also improved/less. 3 small scabs on posterior medial left thigh all erythema continues to improve and receding from drawn marker lines rash becoming more dark/purplish in color consistent with healing Constitutional WD/WN, vitals as above Respiratory normal respiratory effort, lungs clear to auscultation Cardiovascular RRR, no murmur, no edema Gastrointestinal (Abdomen) normal bowel sounds, soft, nontender, no hepatosplenomegaly Psychiatric A+Ox3, euthymic affect Updated Medication List Medication Instructions Recorded Confirmed Type epinephrine 0.3 mg/0.3 mL 0.3 mg (0.3 mL) IM Q4H PRN 09/01/22 06/28/23 Rx injection, auto-injector (EpiPen anaphylaxis #1 ea 2-Kyrie) tadalafil 10 mg tablet (Cialis) 10 mg PO DAILY PRN sexual activity 03/16/23 06/28/23 Rx #20 tabs losartan 50 mg tablet 50 mg PO QAM 06/28/23 06/28/23 History amoxicillin 875 mg-potassium 1 tab PO BID #18 tabs 07/02/23 Rx clavulanate 125 mg tablet Hospital Stay Data Consultations 06/28/23 15:27 ED Decision to Admit Stat 06/28/23 19:53 Consult Infectious Diseases Routine 06/29/23 13:52 Consult Dermatology Routine Diagnostic Imagining Performed 06/28/23 13:36 US venous doppler LE LT Stat 06/28/23 16:53 CT leg [CT femur LT wo con] Stat Pending Results Patient Have Any Pending Studies at Discharge: Yes (Final blood cultures-no growth to date) Discharge Instructions Given to Patient (Per Discharging Provider) Continue taking the antibiotic called Augmentin, twice a day, for 9 more days. If you develop fevers, worsening redness or swelling of the leg, please return to the hospital or call your doctor. If you develop profuse diarrhea again, please call your doctor. As we discussed, it is important to continue to quit smoking and to cut down on your alcohol intake to no more than 1-2 drinks per day. Total Time Total Time Spent Total Time Spent (In Minutes): 35 min Coding Level of Care Code 43603 INP/OBS DISCH >30 MIN Diagnoses Erysipelas of left lower extremity A46 Sepsis A41.9 Hypokalemia E87.6 Campylobacter gastroenteritis A04.5 Alcohol abuse F10.10 Hyponatremia E87.1 Hypophosphatemia E83.39 Tobacco user Z72.0 HTN (hypertension) I10
[2023-07-02 16:08] LABS: Babesia microti DNA Not Detected (Not Detected)
== END 2023-07-02 14:40 | disposition home or self-care (01) | DRG 872 ==
LOC: ED 12:33 → 2E 16:31 → INTOOBSV 16:31 → 2E 20:07